=== PATIENT | male | born 1955 | race Caucasian/White ===

== ENCOUNTER 2020-05-23 14:33 | Outpatient (REF) | payer BC, SELFPAY ==
[2020-05-25 10:37] LABS: Free Prostate Spec Ag 1.4 ng/mL; Percent Free Prostate Spec Ag 22 % (calc) (>25); Prostate Specific Ag Total 6.4 ng/mL (< OR = 4.0)
== END 2020-05-23 14:34 | disposition home or self-care (01) ==
LOC: HO.LAB 14:33
PROVIDERS: PCP Internal Medicine; Visit Provider Internal Medicine
DX: R97.20 Elevated prostate specific antigen [PSA] (principal); Z12.5 Encounter for screening for malignant neoplasm of prostate
CPT/HCPCS: 84153; 84154

== ENCOUNTER 2020-08-24 10:35 | Outpatient (REF) | payer BC, SELFPAY ==
[2020-08-24 11:21] LABS: Estimated Average Glucose 117 mg/dL; Hemoglobin A1c % 5.7 %
[2020-08-24 12:07] LABS: Alanine Aminotransferase 32 U/L (0-40); Albumin Level 4.2 g/dL (3.5-5.0); Alkaline Phosphatase 77 U/L (39-117); Aspartate Amino Transferase 26 U/L (5-37); Bilirubin Direct 0.3 mg/dL (0.0-0.5); Bilirubin Total 0.9 mg/dL (0.0-1.0); Cholesterol 158 mg/dL; Glucose Fasting 117 mg/dL (60-99); HDL Cholesterol 39 mg/dL; LDL Cholesterol Calculated 61 mg/dl; Triglycerides 292 mg/dL
[2020-08-24 13:03] LABS: Reflex LDLD? No
== END 2020-08-24 10:36 | disposition home or self-care (01) ==
LOC: HO.LNP 10:35
PROVIDERS: Visit Provider Internal Medicine
DX: E78.00 Pure hypercholesterolemia, unspecified (principal); E08.10 Diabetes mellitus due to underlying condition with ketoacidosis without coma
CPT/HCPCS: 80061; 80076; 82947; 83036

== ENCOUNTER 2021-02-27 10:14 | Outpatient (REF) | payer OTHER, SELFPAY ==
[2021-02-27 10:20] LABS: MANUAL DIFF FLAG NO
[2021-02-27 10:57] LABS: Basophils Absolute Auto 0.1 X10*3/uL (0.0-0.2); Basophils Percent Auto 0.6 % (0-2); Eosinophils Absolute Auto 0.2 X10*3/uL (0.0-0.4); Eosinophils Percent Auto 2.6 % (0-4); Hematocrit 44.6 % (42-52); Hemoglobin 14.7 g/dl (14.0-18.0); Imm Gran Abs Auto 0.03 X10*3/uL (0.00-0.03); Imm Gran Pct Auto 0.4 % (0.0-0.4); Lymphocytes Absolute Auto 1.9 X10*3/uL (1.2-4.9); Lymphocytes Percent Auto 23.6 % (20-40); Mean Corpuscular Hemoglobin 31.3 pg (27.0-33.0); Mean Corpuscular Volume 94.9 fL (80-98); Mean Platelet Volume 10.6 fL (9.4-12.4); Monocytes Absolute Auto 0.8 X10*3/uL (0.1-1.2); Monocytes Percent Auto 9.7 % (2-11); Neutrophils Absolute Auto 5.1 X10*3/uL (2.0-8.3); Neutrophils Percent Auto 63.1 % (45-73); Platelet Count 266 X10*3/uL (160-400); Red Cell Distribution Width 12.7 % (11.0-16.0); White Blood Count 8.1 X10*3/uL (4.8-10.8)
[2021-02-27 11:17] LABS: Appearance Urine CLEAR; Color Urine YELLOW; Glucose Urine UA NEG (NEG); Leukocyte Esterase Urine NEG (NEG); Nitrite Urine NEG (NEG); Specific Gravity - Urine >= 1.030 (1.005-1.025); Urine Blood NEG (NEG); Urine Ketones NEG (NEG); Urine Protein NEG (NEG-TRACE)
[2021-02-27 11:36] LABS: Alanine Aminotransferase 24 U/L (0-40); Alkaline Phosphatase 72 U/L (39-117); Anion Gap 14 (12-20); Aspartate Amino Transferase 25 U/L (5-37); Bilirubin Total 0.4 mg/dL (0.0-1.0); Blood Urea Nitrogen 13 mg/dL (9-16); Calcium 9.8 mg/dL (8.4-10.2); Carbon Dioxide 28 mmol/L (22-29); Chloride 104 mmol/L (96-108); Cholesterol 167 mg/dL; Estimated Glomerular Filt Rate > 60; Glucose Fasting 112 mg/dL (60-99); HDL Cholesterol 51 mg/dL; LDL Cholesterol Calculated 84 mg/dl; Potassium 4.4 mmol/L (3.3-5.1); Sodium 142 mmol/L (135-145); Triglycerides 162 mg/dL
[2021-02-27 11:49] LABS: Estimated Average Glucose 117 mg/dL; Hemoglobin A1c % 5.7 %
[2021-02-27 11:56] LABS: Creatinine Urine 201.35 mg/dL; Microalbum/Creatinine Ratio Ur 6.9 ug/mg cr
[2021-02-27 12:24] LABS: Reflex LDLD? No
[2021-02-27 12:41] LABS: PSA,Total (Free>4and<10) 3.44 ng/mL (0.00-4.00)
== END 2021-02-27 10:15 | disposition home or self-care (01) ==
LOC: HO.LNP 10:14
PROVIDERS: Visit Provider Internal Medicine
DX: Z00.00 Encounter for general adult medical examination without abnormal findings (principal); Z12.5 Encounter for screening for malignant neoplasm of prostate; I10 Essential (primary) hypertension; E78.00 Pure hypercholesterolemia, unspecified; E11.9 Type 2 diabetes mellitus without complications
CPT/HCPCS: 80053; 80061; 81003; 82043; 83036; 84153; 85025

== ENCOUNTER 2021-08-30 11:53 | Outpatient (REF) | payer MEDICARE, SELFPAY ==
[2021-08-30 12:36] LABS: Alanine Aminotransferase 20 U/L (0-40); Albumin Level 4.2 g/dL (3.5-5.0); Alkaline Phosphatase 81 U/L (39-117); Aspartate Amino Transferase 21 U/L (5-37); Bilirubin Direct 0.2 mg/dL (0.0-0.5); Bilirubin Total 0.6 mg/dL (0.0-1.0); Cholesterol 141 mg/dL; Glucose Fasting 127 mg/dL (60-99); HDL Cholesterol 47 mg/dL; LDL Cholesterol Calculated 69 mg/dl; Total Protein 7.4 g/dL (6.5-8.0); Triglycerides 127 mg/dL
[2021-08-30 12:57] LABS: Estimated Average Glucose 120 mg/dL; Hemoglobin A1c % 5.8 %
[2021-08-30 14:44] LABS: Reflex LDLD? No
== END 2021-08-30 11:54 | disposition home or self-care (01) ==
LOC: HO.LNP 11:53
PROVIDERS: PCP Internal Medicine; Visit Provider Internal Medicine
DX: E78.00 Pure hypercholesterolemia, unspecified (principal); E08.40 Diabetes mellitus due to underlying condition with diabetic neuropathy, unspecified
CPT/HCPCS: 80061; 80076; 82947; 83036

== ENCOUNTER 2022-03-01 10:48 | Outpatient (REF) | payer MEDICARE, SELFPAY ==
[2022-03-01 10:52] LABS: MANUAL DIFF FLAG NO
[2022-03-01 11:38] LABS: Basophils Percent Auto 0.5 % (0-2); Eosinophils Absolute Auto 0.2 X10*3/uL (0.0-0.4); Eosinophils Percent Auto 2.3 % (0-4); Hematocrit 41.4 % (42.0-52.0); Hemoglobin 13.6 g/dl (14.0-18.0); Imm Gran Abs Auto 0.03 X10*3/uL (0.00-0.03); Imm Gran Pct Auto 0.3 % (0.0-0.4); Lymphocytes Percent Auto 22.8 % (20-40); Mean Corpuscular HGB Conc 32.9 g/dl (31.0-36.0); Mean Corpuscular Hemoglobin 30.4 pg (27.0-33.0); Mean Corpuscular Volume 92.6 fL (80.0-98.0); Mean Platelet Volume 10.6 fL (9.4-12.4); Monocytes Absolute Auto 0.9 X10*3/uL (0.1-1.2); Neutrophils Absolute Auto 5.5 x10*3/uL (2.0-8.3); Neutrophils Percent Auto 64.1 % (45-73); Platelet Count 261 X10*3/uL (160-400); Red Blood Count 4.47 X10*6/uL (4.60-5.80); White Blood Count 8.6 X10*3/uL (4.8-10.8)
[2022-03-01 11:41] LABS: Appearance Urine Clear; Color Urine Dark Yellow; Glucose Urine UA Negative (Negative); Leukocyte Esterase Urine Negative (Negative); Nitrite Urine Negative (Negative); PH 5.5 (5.0-9.0); Specific Gravity - Urine >= 1.030 (1.005-1.025); Urine Blood Negative (Negative); Urine Ketones Trace mg/dL (Negative); Urine Protein Negative (Neg-Trace)
[2022-03-01 11:47] LABS: Bacteria Urine None Seen (None Seen); Hyaline Casts Urine 0-2 /LPF (0-2); RBC Urine 0-2 /HPF (0-2); Squamous Epithelial Cell Urine 0-2 /HPF (0-2); WBC Urine 0-5 /HPF (0-5)
[2022-03-01 11:49] LABS: Alanine Aminotransferase 21 U/L (0-40); Albumin Level 4.2 g/dL (3.5-5.0); Alkaline Phosphatase 77 U/L (39-117); Anion Gap 15 (12-20); Aspartate Amino Transferase 27 U/L (5-37); Bilirubin Total 0.6 mg/dL (0.0-1.0); Blood Urea Nitrogen 20 mg/dL (9-16); Calcium 9.1 mg/dL (8.4-10.2); Carbon Dioxide 28 mmol/L (22-29); Chloride 102 mmol/L (96-108); Cholesterol 141 mg/dL; Estimated Glomerular Filt Rate > 60; Glucose Fasting 125 mg/dL (60-99); HDL Cholesterol 44 mg/dL; LDL Cholesterol Calculated 74 mg/dl; Sodium 141 mmol/L (135-145); Triglycerides 116 mg/dL
[2022-03-01 11:50] LABS: Estimated Average Glucose 120 mg/dL; Hemoglobin A1c % 5.8 %
[2022-03-01 12:14] LABS: PSA,Total (Free>4and<10) 3.57 ng/mL (0.00-4.00)
[2022-03-01 12:15] LABS: Creatinine Urine 226.48 mg/dL
== END 2022-03-01 10:49 | disposition home or self-care (01) ==
LOC: HO.LNP 10:48
PROVIDERS: Visit Provider Internal Medicine
DX: I10 Essential (primary) hypertension (principal); E08.40 Diabetes mellitus due to underlying condition with diabetic neuropathy, unspecified; E78.00 Pure hypercholesterolemia, unspecified; Z12.5 Encounter for screening for malignant neoplasm of prostate
CPT/HCPCS: 80053; 80061; 81001; 82043; 83036; 84153; 85025

== ENCOUNTER 2022-05-17 07:30 | Day surgery (SDC) | payer MEDICARE, SELFPAY ==
--- NOTE | 2022-05-16 14:02 | HO.ANESPROP2 ---
Documented by User: Iesha Jacobson NP 05/16/22 14:03 HPI - Anesthesia Eval Consult details Narrative: 67yo M for Colonoscopy [facility] Past Medical History Medical History Diabetes Elevated cholesterol HTN (hypertension) Sleep apnea Surgical History Surgical History Hx of colonoscopy Hx of hernia repair Hx of prostate biopsy Hx of rotator cuff surgery Social History Social History Patient Tobacco Use Status: Current someday Tobacco user Tobacco use type: Cigarette Cigarettes Per Day: 10 Years Smoked: 10 Smoked in Last 30 Days: Yes Use of substances other than those prescribed or required for medical reasons: Yes Substance Use Frequency: Occasionally Are you DNR?: No Advance Directives: No Advance Directives Information Provided: Yes Meds Allergies Allergy/AdvReac Type Severity Reaction Status Date / Time No Known Allergies Allergy Verified 05/17/22 07:40 Home Medications Medication Instructions Recorded Confirmed Last Taken Type atorvastatin 40 mg tablet 1 tab PO DAILY 05/16/22 05/17/22 Unknown History lisinopril 20 1 tab PO DAILY 05/16/22 05/17/22 05/17/22 07:00 History mg-hydrochlorothiazide 12.5 mg tablet metformin 500 mg tablet 1 tab PO BID 05/16/22 05/17/22 05/16/22 History tamsulosin 0.4 mg capsule 1 cap PO BEDTIME 05/16/22 05/17/22 Unknown History Exam Exam Date and Time: May 16, 2022 140 Pertinent Lab Results Pertinent Lab Results: Laboratory Tests 03/01/22 03/01/22 07:15 07:15 WBC 8.6 Hgb 13.6 L Hct 41.4 L Plt Count 261 Sodium 141 Potassium 4.0 Chloride 102 Carbon Dioxide 28 BUN 20 H Creatinine 0.98 Assessment and Plan Assessment Anesthesia Assessment: Chart Reviewed Documented by User: Jaqui Correa MD 05/17/22 08:51 [facility] Past Medical History Medical History Diabetes Elevated cholesterol HTN (hypertension) Sleep apnea Family History Family history of problems with anesthesia: No Surgical History Surgical History Hx of colonoscopy Hx of hernia repair Hx of prostate biopsy Hx of rotator cuff surgery History of Problems with Anesthesia: No Social History Social History Patient Tobacco Use Status: Current someday Tobacco user Tobacco use type: Cigarette Cigarettes Per Day: 10 Years Smoked: 10 Smoked in Last 30 Days: Yes Use of substances other than those prescribed or required for medical reasons: Yes Substance Use Frequency: Occasionally Are you DNR?: No Advance Directives: No Advance Directives Information Provided: Yes Meds Allergies Allergy/AdvReac Type Severity Reaction Status Date / Time No Known Allergies Allergy Verified 05/17/22 07:40 Home Medications Medication Instructions Recorded Confirmed Last Taken Type atorvastatin 40 mg tablet 1 tab PO DAILY 05/16/22 05/17/22 Unknown History lisinopril 20 1 tab PO DAILY 05/16/22 05/17/22 05/17/22 07:00 History mg-hydrochlorothiazide 12.5 mg tablet metformin 500 mg tablet 1 tab PO BID 05/16/22 05/17/22 05/16/22 History tamsulosin 0.4 mg capsule 1 cap PO BEDTIME 05/16/22 05/17/22 Unknown History Exam Airway Mallampati Class: II TM Dist: >3cm Neck ROM: Full Heart: rr Lungs: cta Assessment and Plan Final Anesthetic Review Family History of Problems with Anesthesia: No History of Problems with Anesthesia: No Final Preanesthetic Review: No Changes in Pt Med Stat Anesthetic Plan Anesthetic Plan: MAC: Disposition: Standard PACU
[2022-05-17 07:41] VITALS: BMI 34.1
[2022-05-17 07:47] LABS: Glucose, Whole Blood 111 mg/dL (60-115)
[2022-05-17 08:03] VITALS: BP 188/94; PULSE 67; RESP 16; TEMP 36.4; O2SAT 96
[2022-05-17] MEDS: Lactated Ringers 1,000 ML 100 ML IVCONT (08:04)
--- NOTE | 2022-05-17 09:30 | PM.OP ---
Brief Operative Note Date of Service: 05/17/22 Pre-op diagnosis: Screening Post-op diagnosis: other (Polyps) Procedure: Colonoscopy to the cecum with hot snare polypectomy x 4 Surgeon: Hudson Haas Anesthesia: MAC Was an Electrical Parts Re[employer]er used for this Procedure?: No Estimated blood loss (mL): 0 Pathology: other (A. Cecal polyp near appendiceal orifice B. Polyp at 50cm C. Polyp at 20cm D. Rectal polyp) Condition: stable Disposition: PACU
[2022-05-17 09:32] VITALS: BP 129/68; PULSE 71; RESP 14; TEMP 36.3; O2SAT 98
[2022-05-17 09:51] VITALS: BP 121/70; PULSE 76; RESP 18; TEMP 36.1; O2SAT 96
--- NOTE | 2022-05-17 09:54 | OP_ITS ---
SURGEON: Hudson Haas MD INDICATIONS: The patient presents for evaluation of colorectal cancer screening. Full consent has been obtained from him for this, including risks of bleeding and perforation. PREOPERATIVE DIAGNOSIS: Colorectal cancer screening. POSTOPERATIVE DIAGNOSIS: PROCEDURE PERFORMED: Colonoscopy to the cecum with hot snare polypectomy x 4. ESTIMATED BLOOD LOSS: COMPLICATIONS: ANESTHESIA: Monitored anesthesia care. ASSISTANTS: SPECIMENS: POSTOPERATIVE DIAGNOSES: Colorectal cancer screening, colon polyps, diverticulosis, and internal hemorrhoids. DESCRIPTION OF PROCEDURE: The patient was placed in the left lateral decubitus position. The digital rectal exam revealed no abnormalities. The Olympus video pediatric colonoscope was entered into the rectum and advanced easily to the cecum. Once in the cecum, I did identify a cecal pouch with appendiceal orifice. There was transillumination of light deep in the right lower quadrant. The entire cecum and ileocecal valve were well visualized. In the cecum, just adjacent to the appendiceal orifice was an approximately 10 mm grossly adenomatous polyp, which was removed by hot snare polypectomy and recovered by suction. The polypectomy site appeared clean, without any sign of residual polyp nor bleeding. The scope was then slowly withdrawn assessing all mucosal surfaces carefully. Preparation was excellent. At 50 cm, at 20 cm, and in the rectum were polyps between 8 and 12 mm in size, which were all removed by hot snare polypectomy and recovered by suction. All of the polypectomy sites appeared clean, without any sign of residual polyp nor bleeding. I did not visualize any other polyps, colitis, nor angiodysplasia. There was a mild amount of sigmoid diverticulosis. In the rectum, scope was retroflexed visualizing internal hemorrhoids, but no other pathology. The rectal mucosa appeared normal. The scope was straightened and withdrawn from the patient. He tolerated the procedure well and was returned to the recovery area in stable condition. IMPRESSION: 1. Colon polyps. 2. Diverticulosis. 3. Internal hemorrhoids. PLAN: The results of the pathology will be checked. Given these findings, including the relatively flat polyp near the appendiceal orifice, I would recommend a repeat colonoscopy in 1 year for further evaluation. He was advised not to use any aspirin or NSAIDs for 1 week. MD MONSERRAT Akhtar/TAMMIE / [id number] [facility] HEALTHBecky
== END 2022-05-17 10:20 | disposition home or self-care (01) ==
PROVIDERS: PCP Internal Medicine; Visit Provider Internal Medicine
PROC: 0DJD8ZZ Inspection of Lower Intestinal Tract, Via Natural or Artificial Opening Endoscopic (ICD-10-PCS; CPT 45378; principal; 2022-05-17 08:30)
DX: Z12.11 Encounter for screening for malignant neoplasm of colon (principal); D12.0 Benign neoplasm of cecum; D12.6 Benign neoplasm of colon, unspecified; D12.8 Benign neoplasm of rectum; K57.30 Diverticulosis of large intestine without perforation or abscess without bleeding; K64.8 Other hemorrhoids; I10 Essential (primary) hypertension; E11.9 Type 2 diabetes mellitus without complications; Z79.84 Long term (current) use of oral hypoglycemic drugs; Z79.899 Other long term (current) drug therapy
CPT/HCPCS: 45385; 82947; 88305

== ENCOUNTER 2022-09-17 12:00 | Outpatient (REF) | payer MEDICARE, SELFPAY ==
[2022-09-17 13:34] LABS: Estimated Average Glucose 117 mg/dL; Hemoglobin A1C 148.3802 umol/L; Hemoglobin A1c % 5.7 %
[2022-09-17 14:02] LABS: Alanine Aminotransferase 17 U/L (0-40); Alkaline Phosphatase 78 U/L (39-117); Aspartate Amino Transferase 19 U/L (5-37); Bilirubin Direct 0.2 mg/dL (0.0-0.5); Bilirubin Total 0.7 mg/dL (0.0-1.0); Cholesterol 144 mg/dL; Glucose Fasting 122 mg/dL (60-99); HDL Cholesterol 43 mg/dL; LDL Cholesterol Calculated 73 mg/dl; Total Protein 6.7 g/dL (6.5-8.0); Triglycerides 142 mg/dL
[2022-09-17 14:35] LABS: Reflex LDLD? No
== END 2022-09-17 12:01 | disposition home or self-care (01) ==
LOC: HO.LNP 12:00
PROVIDERS: Visit Provider Internal Medicine
DX: E78.00 Pure hypercholesterolemia, unspecified (principal); E08.40 Diabetes mellitus due to underlying condition with diabetic neuropathy, unspecified
CPT/HCPCS: 80061; 80076; 82947; 83036

== ENCOUNTER 2023-04-15 08:03 | Outpatient (REF) | payer MEDICARE, SELFPAY ==
[2023-04-15 10:42] LABS: MANUAL DIFF FLAG NO
[2023-04-15 10:52] LABS: Basophils Percent Auto 0.5 % (0-2); Eosinophils Absolute Auto 0.2 X10*3/uL (0.0-0.4); Eosinophils Percent Auto 2.2 % (0-4); Hematocrit 42.1 % (42.0-52.0); Imm Gran Abs Auto 0.02 X10*3/uL (0.00-0.03); Imm Gran Pct Auto 0.3 % (0.0-0.4); Lymphocytes Absolute Auto 1.9 X10*3/uL (1.2-4.9); Lymphocytes Percent Auto 24.9 % (20-40); Mean Corpuscular HGB Conc 33.3 g/dl (31.0-36.0); Mean Corpuscular Volume 90.3 fL (80.0-98.0); Mean Platelet Volume 10.8 fL (9.4-12.4); Monocytes Absolute Auto 0.7 X10*3/uL (0.1-1.2); Monocytes Percent Auto 8.5 % (2-11); Neutrophils Absolute Auto 4.9 x10*3/uL (2.0-8.3); Neutrophils Percent Auto 63.6 % (45-73); Platelet Count 282 X10*3/uL (160-400); Red Blood Count 4.66 X10*6/uL (4.60-5.80); Red Cell Distribution Width 12.2 % (11.0-16.0); White Blood Count 7.7 X10*3/uL (4.8-10.8)
[2023-04-15 10:53] LABS: Appearance Urine Clear; Color Urine Yellow; Glucose Urine UA Negative (Negative); Leukocyte Esterase Urine Negative (Negative); Nitrite Urine Negative (Negative); Urine Blood Negative (Negative); Urine Ketones Negative (Negative); Urine Protein Negative (Neg-Trace)
[2023-04-15 10:56] LABS: Bacteria Urine None Seen (None Seen); Hyaline Casts Urine 0-2 /LPF (0-2); RBC Urine 0-2 /HPF (0-2); Squamous Epithelial Cell Urine 0-2 /HPF (0-2); WBC Urine 0-5 /HPF (0-5)
[2023-04-15 11:01] LABS: Estimated Average Glucose 111 mg/dL; Hemoglobin A1c % 5.5 % (<6.0)
[2023-04-15 11:08] LABS: Alanine Aminotransferase 13 U/L (0-40); Alkaline Phosphatase 78 U/L (39-117); Anion Gap 13 (12-20); Aspartate Amino Transferase 18 U/L (5-37); Bilirubin Total 0.5 mg/dL (0.0-1.0); Blood Urea Nitrogen 13 mg/dL (9-16); Calcium 9.7 mg/dL (8.4-10.2); Carbon Dioxide 30 mmol/L (22-29); Chloride 102 mmol/L (96-108); Cholesterol 132 mg/dL (<200); Estimated Glomerular Filt Rate > 60; Glucose Fasting 124 mg/dL (60-99); HDL Cholesterol 36 mg/dL (>40); LDL Cholesterol Calculated 67 mg/dL (<100); Potassium 4.2 mmol/L (3.3-5.1); Sodium 141 mmol/L (135-145); Total Protein 7.2 g/dL (6.5-8.0); Triglycerides 147 mg/dL (<150)
[2023-04-15 11:19] LABS: PSA,Total (Free>4and<10) 2.76 ng/mL (0.00-4.00)
[2023-04-15 12:09] LABS: Creatinine Urine 63.76 mg/dL; Microalbumin Urine < 5.0 mg/L
== END 2023-04-15 08:04 | disposition home or self-care (01) ==
LOC: HO.10HDL 08:03
PROVIDERS: Visit Provider Internal Medicine
DX: I10 Essential (primary) hypertension (principal); E08.40 Diabetes mellitus due to underlying condition with diabetic neuropathy, unspecified; E78.00 Pure hypercholesterolemia, unspecified; Z12.5 Encounter for screening for malignant neoplasm of prostate
CPT/HCPCS: 36415; 80053; 80061; 81001; 82043; 82570; 83036; 84153; 85025

== ENCOUNTER 2023-12-01 11:53 | Outpatient (REF) | payer MEDICARE, SELFPAY ==
[2023-12-01 12:22] LABS: Estimated Average Glucose 120 mg/dL; Hemoglobin A1c % 5.8 % (<6.0)
[2023-12-01 12:25] LABS: Alanine Aminotransferase 17 U/L (0-40); Albumin Level 4.1 g/dL (3.5-5.0); Alkaline Phosphatase 89 U/L (39-117); Aspartate Amino Transferase 19 U/L (5-37); Bilirubin Direct 0.2 mg/dL (0.0-0.5); Bilirubin Total 0.5 mg/dL (0.0-1.0); Cholesterol 124 mg/dL (<200); Glucose Fasting 115 mg/dL (60-99); HDL Cholesterol 40 mg/dL (>40); LDL Cholesterol Calculated 41 mg/dL (<100); Total Protein 7.5 g/dL (6.5-8.0); Triglycerides 215 mg/dL (<150)
== END 2023-12-01 11:54 | disposition home or self-care (01) ==
LOC: HO.LNP 11:53
PROVIDERS: Visit Provider Internal Medicine
DX: E78.00 Pure hypercholesterolemia, unspecified (principal); E08.40 Diabetes mellitus due to underlying condition with diabetic neuropathy, unspecified
CPT/HCPCS: 80061; 80076; 82947; 83036

== ENCOUNTER 2024-06-04 11:09 | Outpatient (REF) | payer MEDICARE, SELFPAY ==
--- OUTSIDE RECORDS SUMMARY | 2024-06-04 11:15 | XMS_ITS | Patient Health Record ---
Author Organization Deshaun Rosenberg MD Address [address] [place], [place] [id number] Care Team Providers Care Exceptional Children Teacher Assistant Name Role Phone Deshaun Rosenberg Primary Care Provider ALLERGIES No Known Allergies RESULTS Component Value Reference Range Notes Hemoglobin A1c Reviewed date:09/05/2023 10:58:55 AM Interpretation: Performing Lab: Notes/Report: Value Hemoglobin A1c 6.5 Occult Blood, Stool, Guaiac Reviewed date:06/05/2023 03:35:35 PM Interpretation:Negative Performing Lab: Notes/Report: Negative Occult Blood, Stool, Guaiac Glucose, finger stick Reviewed date:09/05/2023 10:52:09 AM Interpretation: Performing Lab: Notes/Report: Value 137 Lipid Panel Reviewed date:12/01/2023 05:15:23 PM Interpretation: Performing Lab:[facility], [address] [place] [phone] Notes/Report: Triglycerides 215 <150 mg/dL Desirable Triglyceride: less than 150 mg/dL Borderline High Triglyceride 150-199 mg/dL High Triglyceride: 200-499 mg/dL Very High Triglyceride: greater than or equal to 5OO mg/dL Cholesterol 124 <200 mg/dL Desirable Cholesterol: less than 200 mg/dL Borderline High Cholesterol: 200-239 mg/dL High Cholesterol: greater than 239 mg/dL LDL Cholesterol Calculated 41 <100 mg/dL Desirable LDL: less than 100 mg/dL Near Optimal/Above Optimal LDL: 110-129 mg/dL Borderline High LDL: 130-159 mg/dL High LDL: 160-189 mg/dL Very High LDL: greater than or equal to 190 mg/dL HDL Cholesterol 40 >40 mg/dL Desirable HDL: greater than 40 mg/dL Note: This HDL assay may give artificially low results in patients with liver disease. Lory Kulkarni Reviewed date:12/01/2023 05:15:49 PM Interpretation: Performing Lab:[facility], [address] [place] [phone] Notes/Report: Lory Kulkarni See Note Specimen held untested for 24 hours; Call to request Chemistry testing. Liver Panel Reviewed date:12/01/2023 05:14:30 PM Interpretation: Performing Lab:[facility], [address] [place] [phone] Notes/Report: Bilirubin Total 0.5 0.0-1.0 mg/dL Bilirubin Direct 0.2 0.0-0.5 mg/dL Aspartate Amino Transferase 19 5-37 U/L Alanine Aminotransferase 17 0-40 U/L Total Protein 7.5 6.5-8.0 g/dL Albumin Level 4.1 3.5-5.0 g/dL Alkaline Phosphatase 89 39-117 U/L Glucose Fasting Reviewed date:12/01/2023 05:13:19 PM Interpretation: Performing Lab:[facility], [address] [place] [phone] Notes/Report: Glucose Fasting 115 60-99 mg/dL A fasting glucose from 100-125 mg/dl is considered impaired (pre-diabetes). Hemoglobin A1c Reviewed date:12/01/2023 05:13:10 PM Interpretation: Performing Lab:[facility], [address] [place] [phone] Notes/Report: Hemoglobin A1c % 5.8 <6.0 % Hemoglobin A1C Reference Range Adults: 4.8 - 6.0 % Non diabetic: < 6.0 % Goal: < 7.0 % Additional Action Suggested: > 8.0 % Note: Hemoglobin A1c results are invalid for patients with abnormal amounts of HbF. Blood transfusions may impact the HbA1c concentration in the patient sample. Estimated Average Glucose 120 eAG = Estimated average glucose which is %A1C expressed as average glucose, using the formula of the A6Y-Vpogely Average Glucose study (ADAG), Diabetes Care, Vol.31,#8, Jan. 2007 REASON FOR REFERRAL Reason arthritis in both kn ees Diagnosis 1 Arthritis of knee (M 17.10) Referral Organization Deshaun Rosenberg MD Referring Provider First Name Deshaun Referring Provider Last Name Chet Referring Provider Speciality Internal M edicine Referred Provider JUAN DIEGO ANDREWS Referred Provider Specialty Orthopedic S urgery General Notes Hui Hawthorne 08:56:43 AM EDT > info faxed , Hui Hawthorne 09/12/2023 11:53:12 AM EDT > office referral info paper mailed to patient, Hui Hawthorne 10/14/2023 08:59:07 AM EDT > patient aware of appt Payton Patti A 03/04/2024 08:47:07 AM EDT > NOTE RECD Referral Priority Routine Referral Appointment Date 11/05/2023 MEDICATIONS Medication SIG (Take, Route, Frequency, Duration) Notes Start Date End Date Status Ibuprofen 800 MG 1 tablet Orally Thre e times a day for 30 day(s) 09/12/2014 Not-Taking Ambien 5 MG 1 tablet at bedtime as needed Orally Once a day for 30 days 12/05/2023 Active LORazepam 0.5 MG 1 tablet as needed Orally Once a day for 5 days 04/14/2018 Not-Taking Ciclopirox 0.77% as directed applied topically twice a day for 30 days 04/12/2022 Active Celecoxib 200 MG TAKE 1 CAPSULE BY MOUTH ONCE DAILY WITH FOOD FOR 30 DAYS for 30 Active Gabapentin 600 MG 1 capsule Orally Onc e a day for 90 days 06/05/2023 Active Atorvastatin Calcium 40 MG Take 1 tablet by mouth once daily for 90 days for 90 Active Tamsulosin HCl 0.4 MG 1 capsule Orally O nce a day for 30 day(s) Active metFORMIN HCl 500 MG TAKE 1 TABLET BY [facility] TWICE DAILY WITH MEALS Active Lotrisone 1-0.05 % 1 application to affected area Externally Twice a day for 90 days 12/27/2012 Active Lisinopril-hydroCHLOROthia zide 20-12.5 MG Take 1 tablet by mouth once daily Active Ibuprofen 800 MG 1 tablet with food o r milk as needed Orally Three times a day for 90 days 10/24/2017 Not-Taking Viagra 50 MG 1 tablet as needed Orally Once a day for 30 days 12/22/2012 Not-Taking dexAMETHasone 4 MG 1 tablet Orally Thre e times a day for 7 days 12/24/2022 Not-Takin g Cyclobenzaprine HCl 5 MG 1 tab Orally 3 times a day for 14 days 12/31/2022 Not-Taking IMMUNIZATIONS Vaccine Route Administration Date Status Comme nts Flu Vaccine IM Intramuscular 02/04/2011 Administered Flu Vaccine IM Intramuscular 06/07/2014 Administered PPSV23 (Pnemovax) IM Intramuscular 11/17/2017 Administered Fluarix Quadrivalent IM Intramuscular 02/19/2018 Administe red Fluarix Quadrivalent IM Intramuscular 02/16/2019 Administe red Prevnar 13 IM Intramuscular 02/25/2019 Administered Fluarix Quadrivalent IM Intramuscular 03/09/2020 Administe red Fluarix Quadrivalent Unknown 02/23/2021 Administered CV S TDaP Unknown 02/23/2021 Administered [facility] SARS-COV-2 Pfizer Unknown 08/14/2020 Administered SARS-COV-2 Pfizer Unknown 09/04/2020 Administered Fluarix Quadrivalent IM Intramuscular 03/01/2022 Administe red SARS-COV-2 Pfizer Unknown 04/19/2021 Administered SARS-COV-2 Pfizer Unknown 03/01/2022 Administered Flu Vaccine Unknown 07/11/2015 Refused SOCIAL HISTORY Tobacco Use: Social History Observation Description Date Details (start date - stop date) Former Smoker NA - NA Sex Assigned At : Social History Observation Description Sex Assigned At Unknown Tobacco Use/Smoking Question Answer Notes Patient is a former smoker How long has it been since y ou last smoked? 6-12 months Additional Findings: Tobacco Non-User Fo rmer smoker, currently using no form of tobacco Alcohol Screen Question Answer Notes Did you have a drink contain ing alcohol in the past year? Yes How often did you have a dri nk containing alcohol in the past year? 4 or more times a week (4 points) How many drinks did you have on a typical day when you were drinking in the past year? 1 or 2 drinks (0 point) How often did you have 6 or more drinks on one occasion in the past year? Never (0 point) Points 4 Interpretation Positive PROBLEMS Problem Type ICD Code Onset Dates Problem Status W/U Status Risk SNOMED Code Notes Problem Primary insomnia (F51.01) Active confirmed 2669171 Problem Erectile dysfunction due to arterial insufficiency (N52.01) Active confirmed 4659807521232 07 Problem Smoker (F17.200) Active confirmed 38683 002 Problem Essential hypertensi on (I10) Active confirmed 38529267 Problem Type 2 diabetes mellitus without complication (E11.9) Active confirmed Type 2 diabetes mellitus without complication (614540763) Problem Olecranon bursitis o f left elbow (M70.22) Active confirmed Inflamma tion of bursa of olecranon (434132997) Problem Diabetes mellitus du e to underlying condition with diabetic neuropathy (E08.40) Active confirmed 1527832 Problem Type 2 diabetes, controlled, with neuropathy (E11.40) Active confirmed 92838343 Problem Stress (F43.9) Active confirmed 4811351 0 Problem Dysthymia (F34.1) Active confirmed 7866 7006 Problem Right sided sciatica (M54.31) Active confirmed Sciatica (45567694) Problem Pure hypercholesterolemia (E78.00) Active confirmed 434866927 Problem Arthritis of knee (M17.10) Active confirmed 408735275 Problem Unspecified sleep apnea (G47.30) Active confirmed 70345602 Problem Hand arthritis (M19.049) Active confirmed 106234068 Problem Disc disorder (M51.9) Active confirmed Intervertebral disc disorder (13611529) VITAL SIGNS Blood pressure diastolic 60 mm Hg 12/05/2023 patricia ght is up 5 pounds since 09-05-23 Height 64 in 12/05/2023 weight is up 5 pounds since 09-05-23 Blood pressure systolic 132 mm Hg 12/05/2023 weig ht is up 5 pounds since 09-05-23 Weight 205 lbs 12/05/2023 weight is up 5 pounds since 09-05-23 BMI 35.18 kg/m2 12/05/2023 weight is up 5 pounds since 09-05-23 Encounters Encounter Location Date Provider Diagnosis Deshaun Rosenberg MD [address] [place] [id number] 06/05/2023 Deshaun Rosenberg Pain in right knee M 25.561 ; Diabetes mellitus due to underlying condition with diabetic neuropathy E08.40 ; Essential hypertension I10 ; Pure hypercholesterolemia E78.00 ; Colon cancer screening Z12.11 and Depression screening Z13.31 Deshaun Rosenberg MD [address] [place] [id number] 12/01/2023 Deshaun Rosenberg Diabetes mellitus du e to underlying condition with diabetic neuropathy E08.40 and Pure hypercholesterolemia E78.00 Deshaun Rosenberg MD [address] [place] [id number] 06/04/2024 Deshaun Rosenberg Diabetes mellitus du e to underlying condition with diabetic neuropathy E08.40 ; Essential hypertension I10 and Pure hypercholesterolemia E78.00 Deshaun Rosenberg MD [address] [place] [id number] 09/05/2023 Deshaun Rosenberg Diabetes mellitus du e to underlying condition with diabetic neuropathy E08.40 ; Arthritis of knee M17.10 and Primary insomnia F51.01 Deshaun Rosenberg MD [address] [place] [id number] 12/05/2023 Deshaun Rosenberg Diabetes mellitus du e to underlying condition with diabetic neuropathy E08.40 ; Primary insomnia F51.01 ; Pure hypercholesterolemia E78.00 and Essential hypertension I10 ASSESSMENTS Encounter Date Diagnosis Assessment Notes Treatment Notes Treatment Clinical Notes 06/05/2023 Pain in right knee (ICD-10 - M25.561) referral to [facility]/ PATIENT WISHES TO GO TO THE WALK IN CLINIC AT [facility] , ALL INFO GIVEN 06/05/2023 Diabetes mellitus du e to underlying condition with diabetic neuropathy (ICD-10 - E08.40) doing well, will continue current regiment 12/01/2023 Diabetes mellitus du e to underlying condition with diabetic neuropathy (ICD-10 - E08.40) 12/01/2023 Pure hypercholestero lemia (ICD-10 - E78.00) 06/04/2024 Essential hypertensi on (ICD-10 - I10) 06/04/2024 Diabetes mellitus du e to underlying condition with diabetic neuropathy (ICD-10 - E08.40) 09/05/2023 Diabetes mellitus du e to underlying condition with diabetic neuropathy (ICD-10 - E08.40) stable, will continue current rgiment 09/05/2023 Arthritis of knee (I CD-10 - M17.10) referral to [facility], patient verbalized understanding of medication and directins fr use 12/05/2023 Primary insomnia (IC D-10 - F51.01) patient verbalized understanding of medication and directions for use 12/05/2023 Diabetes mellitus du e to underlying condition with diabetic neuropathy (ICD-10 - E08.40) a1c normal, will continue current regiment 06/05/2023 Essential hypertensi on (ICD-10 - I10) well controlled, will continue current regiment 06/04/2024 Pure hypercholestero lemia (ICD-10 - E78.00) 09/05/2023 Primary insomnia (IC D-10 - F51.01) patient verbalized understanding of medicatin and directions for use. 12/05/2023 Pure hypercholestero lemia (ICD-10 - E78.00) stable, will continue current regiment 06/05/2023 Pure hypercholestero lemia (ICD-10 - E78.00) stable, will continue current regiment 12/05/2023 Essential hypertensi on (ICD-10 - I10) stable, will contiue current regiment 06/05/2023 Colon cancer screeni ng (ICD-10 - Z12.11) guaiac negative 06/05/2023 Depression screening (ICD-10 - Z13.31) negative screen PLAN OF TREATMENT Pending Test Test Name Order Date Electrocardiogram (EKG) 02/19/2018 Electrocardiogram (EKG) 02/25/2019 MRI LUMBAR SPINE NO CONTRAST 12/24/2022 Complete Blood Count Auto Diff 4 Comprehensive Erin. Panel Fast 4 Lipid Panel 06/04/2024 PSA,Total (Free>4and<10) 06/04/2024 MR thoracic spine wo con 01/21/2023 MR thoracic spine wo con 01/06/2023 UA ClnCatch+Micro w/rflx Cult 06/04/2024 Next Appt Details Provider Name:Deshaun delacruz, 06/10/2024 08:00:00 AM, [address] [place] [address], [address], [place], [place], [phone], Insurance Providers Payer Name Payer Address Payer Phone Subscriber Number Group Number Insured Name Patient Relationship to Insured Coverage Start Date Coverage End Date MEDICARE [employer] [address] [place] [address] [id number] Terri Chapin Self - patient is the insured [employer]BS OF [employer] [id number] [place] [phone] [id number] Terri Chapin Self - patient is the insured MEDICAL (GENERAL) HISTORY Medical History History ICD Code colonoscopy 04/05/2009 due 1 0 year w/Dr. Haas: 05/17/22 Colonoscopy 1 yr follow up refuses flu vac - 06/26/2012 Rotator cuff tear
--- OUTSIDE RECORDS SUMMARY | 2024-06-04 11:15 | XMS_ITS ---
Author Organization Deshaun Rosenberg MD Address [address] [place] [phone] Care Team Providers Care Reprographics Associate Name Role Phone Deshaun Rosenberg Primary Care Provider ALLERGIES No Known Allergies REASON FOR VISIT 3 month, c/o left knee pain MEDICATIONS Medication SIG (Take, Route, Frequency, Duration) Notes Start Date End Date Status Cyclobenzaprine HCl 5 MG 1 tab Orally 3 times a day for 14 days 12/31/2022 Not-Taking Ibuprofen 800 MG 1 tablet with food o r milk as needed Orally Three times a day for 90 days 10/24/2017 Not-Taking Viagra 50 MG 1 tablet as needed Orally Once a day for 30 days 12/22/2012 Not-Taking LORazepam 0.5 MG 1 tablet as needed Orally Once a day for 5 days 04/14/2018 Not-Taking Ibuprofen 800 MG 1 tablet Orally Thre e times a day for 30 day(s) 09/12/2014 Not-Taking metFORMIN HCl 500 MG TAKE 1 TABLET BY [facility] TWICE DAILY WITH MEALS Active Atorvastatin Calcium 40 MG Take 1 tablet by mouth once daily Active dexAMETHasone 4 MG 1 tablet Orally Thre e times a day for 7 days 12/24/2022 Not-Takin g Gabapentin 600 MG 1 capsule Orally Onc e a day for 90 days 06/05/2023 Active Lisinopril-hydroCHLOROthia zide 20-12.5 MG Take 1 tablet by mouth once daily Active Tamsulosin HCl 0.4 MG 1 capsule Orally O nce a day for 30 day(s) Active Ambien 5 MG 1 tablet at bedtime as needed Orally Once a day for 30 days 12/05/2023 Active Lotrisone 1-0.05 % 1 application to affected area Externally Twice a day for 90 days 12/27/2012 Active Ciclopirox 0.77% as directed applied topically twice a day for 30 days 04/12/2022 Active CeleBREX 200 MG 1 capsule with food Orally Once a day for 30 day(s) 09/05/2023 Active VITAL SIGNS BMI 35.18 kg/m2 12/05/2023 Blood pressure systolic 132 mm Hg 12/05/19 24 Blood pressure diastolic 60 mm Hg 024 Height 64 in 12/05/2023 Weight 205 lbs 12/05/2023 weight is up 5 pounds since 09-05-23 Encounters Encounter Location Date Provider Diagnosis Deshaun Rosenberg MD [address] [place] [address] [place] [id number] 12/05/2023 Deshaun Rosenberg Diabetes mellitus du e to underlying condition with diabetic neuropathy E08.40 ; Primary insomnia F51.01 ; Pure hypercholesterolemia E78.00 and Essential hypertension I10 ASSESSMENTS Encounter Date Diagnosis Assessment Notes Treatment Notes Treatment Clinical Notes 12/05/2023 Diabetes mellitus du e to underlying condition with diabetic neuropathy (ICD-10 - E08.40) a1c normal, will continue current regiment 12/05/2023 Primary insomnia (IC D-10 - F51.01) patient verbalized understanding of medication and directions for use 12/05/2023 Pure hypercholestero lemia (ICD-10 - E78.00) stable, will continue current regiment 12/05/2023 Essential hypertensi on (ICD-10 - I10) stable, will contiue current regiment PLAN OF TREATMENT Medication Medication Name Sig Start Date Stop Date Notes metFORMIN HCl 500 MG TAKE 1 TABLET BY MO UTH TWICE DAILY WITH MEALS Atorvastatin Calcium 40 MG Take 1 tablet by mouth once daily Lisinopril-hydroCHLOROthiazi de 20-12.5 MG Take 1 tablet by mouth once daily Ambien 5 MG 1 tablet at bedtime as needed Orally Once a day for 30 days 12/05/2023 Treatment Notes Assessment Notes Diabetes mellitus due to und erlying condition with diabetic neuropathy a1c normal, will continue current regiment Primary insomnia patient verbalized u nderstanding of medication and directions for use Pure hypercholesterolemia stable, will c ontinue current regiment Essential hypertension stable, will cont iue current regiment Next Appt Details Provider Name:Deshaun Dominguez ier, 06/10/2024 08:00:00 AM, [address], [address], [place], [place], [phone], Progress Notes * Examination Category Sub-Category Detail Notes General Examination GENERAL APPEARANCE: alert, w ell hydrated, in no distress , male HEAD: normocephalic HEART: no murmurs, rubs, ga llops, regular rate and rhythm LUNGS: no wheezes, rales, r honchi, good air movement, clear to auscultation bilaterally SKIN: good turgor
--- OUTSIDE RECORDS SUMMARY | 2024-06-04 11:15 | XMS_ITS ---
Author Organization Deshaun Rosenberg MD Address [address] [place] [phone] Care Team Providers Care Hot Box Operator Name Role Phone Deshaun Rosenberg Primary Care Provider [phone] RESULTS Component Value Reference Range Notes Liver Panel Reviewed date:12/01/2023 05:14:30 PM Interpretation: Performing Lab:[facility], [address] [place] [phone] Notes/Report: Bilirubin Total 0.5 0.0-1.0 mg/dL Bilirubin Direct 0.2 0.0-0.5 mg/dL Aspartate Amino Transferase 19 5-37 U/L Alanine Aminotransferase 17 0-40 U/L Total Protein 7.5 6.5-8.0 g/dL Albumin Level 4.1 3.5-5.0 g/dL Alkaline Phosphatase 89 39-117 U/L Glucose Fasting Reviewed date:12/01/2023 05:13:19 PM Interpretation: Performing Lab:[facility], [address] [place] [phone] Notes/Report: Glucose Fasting 115 60-99 mg/dL A fasting glucose from 100-125 mg/dl is considered impaired (pre-diabetes). Hemoglobin A1c Reviewed date:12/01/2023 05:13:10 PM Interpretation: Performing Lab:[facility], [address] [place] [phone] Notes/Report: Hemoglobin A1c % 5.8 <6.0 % [...] average glucose, using the formula of the Z3T-Kuqfcrg Average Glucose study (ADAG), Diabetes Care, Vol.31,#8, 2007 REASON FOR VISIT FASTING LIPIDS Encounters Encounter Location Date Provider Diagnosis Deshaun Rosenberg MD [address] [place] [address] [address] [place], [place] [phone] 12/01/2023 Deshaun Rosenberg Diabetes mellitus du e to underlying condition with diabetic neuropathy E08.40 and Pure hypercholesterolemia E78.00 ASSESSMENTS Encounter Date Diagnosis Assessment Notes Treatment Notes Treatment Clinical Notes 12/01/2023 Diabetes mellitus du e to underlying condition with diabetic neuropathy (ICD-10 - E08.40) 12/01/2023 Pure hypercholestero lemia (ICD-10 - E78.00) PLAN OF TREATMENT Next Appt Details Provider Name:Deshaun Dominguez iemanuela, 06/10/2024 08:00:00 AM, [address] [place] [address], Suite [facility], [place], [place], [phone], History and Physical Notes * HPI (History of Present Illness) Category Sub-Category Detail Notes Symptom(s) Telehealth Location of prov ider rendering services:: [address] [place] [address], [address] Location of patient:: at address listed in demographics for today's visit Patient identification confirmed using:: Name, Telehealth method:: Telephone only. Katelyn ent not visible to care provider. Consent:: Patient verbally c onsented to treatment, Patient verbally consented to billing insurance company, Patient informed of any privacy concerns related to method of visit Total time spend talking with patient (m inutes): 0
--- OUTSIDE RECORDS SUMMARY | 2024-06-04 11:15 | XMS_ITS ---
Author Organization Deshaun Rosenberg MD Address [address] [place] [phone] Care Team Providers Care Classification Analyst Name Role Phone Deshaun Rosenberg Primary Care Provider [phone] REASON FOR VISIT FASTING LABS MEDICATIONS Medication SIG (Take, Route, Frequency, Duration) Notes Start Date End Date Status Ibuprofen 800 MG 1 tablet Orally Thre e times a day for 30 day(s) 09/12/2014 Not-Taking Ambien 5 MG 1 tablet at bedtime as needed Orally Once a day for 30 days 12/05/2023 Active Celecoxib 200 MG TAKE 1 CAPSULE BY MOUTH ONCE DAILY WITH FOOD FOR 30 DAYS for 30 Active metFORMIN HCl 500 MG TAKE 1 TABLET BY MO UT TWICE DAILY WITH MEALS Active Lisinopril-hydroCHLOROthia zide 20-12.5 MG Take 1 tablet by mouth once daily Active LORazepam 0.5 MG 1 tablet as needed Orally Once a day for 5 days 04/14/2018 Not-Taking Ibuprofen 800 MG 1 tablet with food o r milk as needed Orally Three times a day for 90 days 10/24/2017 Not-Taking Viagra 50 MG 1 tablet as needed Orally Once a day for 30 days 12/22/2012 Not-Taking dexAMETHasone 4 MG 1 tablet Orally Thre e times a day for 7 days 12/24/2022 Not-[address] Cyclobenzaprine HCl 5 MG 1 tab Orally 3 times a day for 14 days 12/31/2022 Not-Taking Ciclopirox 0.77% as directed applied topically twice a day for 30 days 04/12/2022 Active Gabapentin 600 MG 1 capsule Orally Onc e a day for 90 days 06/05/2023 Active Atorvastatin Calcium 40 MG Take 1 tablet by mouth once daily for 90 days for 90 Active Tamsulosin HCl 0.4 MG 1 capsule Orally O nce a day for 30 day(s) Active Lotrisone 1-0.05 % 1 application to affected area Externally Twice a day for 90 days 12/27/2012 Active Encounters Encounter Location Date Provider Diagnosis Deshaun Rosenberg MD [address] [place] [address] [address] [place], [place] [phone] 06/04/2024 Deshaun Rosenberg Diabetes mellitus du e to underlying condition with diabetic neuropathy E08.40 ; Essential hypertension I10 and Pure hypercholesterolemia E78.00 ASSESSMENTS Encounter Date Diagnosis Assessment Notes Treatment Notes Treatment Clinical Notes 06/04/2024 Diabetes mellitus du e to underlying condition with diabetic neuropathy (ICD-10 - E08.40) 06/04/2024 Essential hypertensi on (ICD-10 - I10) 06/04/2024 Pure hypercholestero lemia (ICD-10 - E78.00) PLAN OF TREATMENT Pending Test Test Name Order Date Complete Blood Count Auto Diff 4 Comprehensive [place]. Panel Fast 4 Lipid Panel 06/04/2024 PSA,Total (Free>4and<10) 06/04/2024 UA ClnCatch+Micro w/rflx Cult 06/04/2024 Next Appt Details Provider Name:Deshaun delacruz, 06/10/2024 08:00:00 AM, [address] [place] [address], [address], [place], [place], [phone],
[2024-06-04 11:21] LABS: MANUAL DIFF FLAG NO
[2024-06-04 11:29] LABS: Basophils Percent Auto 0.4 % (0-2); Eosinophils Absolute Auto 0.2 X10*3/uL (0.0-0.4); Eosinophils Percent Auto 2.3 % (0-4); Hematocrit 40.5 % (42.0-52.0); Hemoglobin 13.3 g/dl (14.0-18.0); Imm Gran Abs Auto 0.03 X10*3/uL (0.00-0.03); Imm Gran Pct Auto 0.4 % (0.0-0.4); Lymphocytes Percent Auto 23.8 % (20-40); Mean Corpuscular HGB Conc 32.8 g/dl (31.0-36.0); Mean Corpuscular Hemoglobin 31.3 pg (27.0-33.0); Mean Corpuscular Volume 95.3 fL (80.0-98.0); Mean Platelet Volume 10.9 fL (9.4-12.4); Monocytes Absolute Auto 0.9 X10*3/uL (0.1-1.2); Monocytes Percent Auto 10.4 % (2-11); Neutrophils Absolute Auto 5.1 x10*3/uL (2.0-8.3); Neutrophils Percent Auto 62.7 % (45-73); Platelet Count 302 X10*3/uL (160-400); Red Blood Count 4.25 X10*6/uL (4.60-5.80); Red Cell Distribution Width 12.5 % (11.0-16.0); White Blood Count 8.2 X10*3/uL (4.8-10.8)
[2024-06-04 11:31] LABS: Appearance Urine Clear; Color Urine Yellow; Glucose Urine UA Negative (Negative); Leukocyte Esterase Urine Negative (Negative); Nitrite Urine Negative (Negative); PH 5.5 (5.0-9.0); Specific Gravity - Urine >= 1.030 (1.005-1.025); Urine Blood Negative (Negative); Urine Ketones Trace mg/dL (Negative); Urine Protein Negative (Neg-Trace)
[2024-06-04 11:42] LABS: Bacteria Urine None Seen (None Seen); Hyaline Casts Urine 0-2 /LPF (0-2); RBC Urine 0-2 /HPF (0-2); Squamous Epithelial Cell Urine 0-2 /HPF (0-2); WBC Urine 0-5 /HPF (0-5)
[2024-06-04 12:00] LABS: PSA,Total (Free>4and<10) 3.29 ng/mL (0.00-4.00)
[2024-06-04 12:07] LABS: Alanine Aminotransferase 17 U/L (0-40); Albumin Level 3.7 g/dL (3.5-5.0); Alkaline Phosphatase 80 U/L (39-117); Anion Gap 11 (12-20); Aspartate Amino Transferase 24 U/L (5-37); Bilirubin Total 0.2 mg/dL (0.0-1.0); Blood Urea Nitrogen 20 mg/dL (9-16); Calcium 8.9 mg/dL (8.4-10.2); Carbon Dioxide 31 mmol/L (22-29); Chloride 102 mmol/L (96-108); Cholesterol 141 mg/dL (<200); Estimated Glomerular Filt Rate > 60; Glucose Fasting 111 mg/dL (60-99); HDL Cholesterol 44 mg/dL (>40); LDL Cholesterol Calculated 49 mg/dL (<100); Potassium 4.4 mmol/L (3.3-5.1); Sodium 140 mmol/L (135-145); Total Protein 6.8 g/dL (6.5-8.0); Triglycerides 243 mg/dL (<150)
== END 2024-06-04 11:10 | disposition home or self-care (01) ==
LOC: HO.LNP 11:09
PROVIDERS: Visit Provider Internal Medicine
DX: I10 Essential (primary) hypertension (principal); E08.40 Diabetes mellitus due to underlying condition with diabetic neuropathy, unspecified; E78.00 Pure hypercholesterolemia, unspecified; Z12.5 Encounter for screening for malignant neoplasm of prostate
CPT/HCPCS: 80053; 80061; 81001; 84153; 85025

== ENCOUNTER 2024-12-06 10:51 | Outpatient (REF) | payer MEDICARE, SELFPAY ==
--- OUTSIDE RECORDS SUMMARY | 2024-12-06 05:15 | XMS_ITS ---
Author Organization Deshaun Rosenberg MD Address [address] [place] [phone] Care Team Providers Care Turkey Farmer Name Role Phone Deshaun Rosenberg Primary Care Provider [phone] Allergies No Known Allergies REASON FOR [...] HCl 500 MG TAKE 1 TABLET BY [facility] TWICE DAILY WITH MEALS Orally twice a [...] Date Provider Diagnosis Deshaun Rosenberg MD [address] [place] [phone] 12/06/2024 Deshaun Rosenberg Tick bite W57.XXXA Assessments Encounter Date Diagnosis (ICD Code) Assessment Notes Treatment Notes Treatment Clinical Notes Section Notes 12/06/2024 Tick bite (ICD-10 - W57.XXXA) patient verbalized understanding of medication and directions for use Plan Of Treatment Medication Medication Name Sig Start Date Stop Date Notes Doxycycline Hyclate 100 MG 1 capsule Ora lly twice a day for 14 days 12/06/2024 Treatment Notes Assessment Notes Tick bite patient verbalized u nderstanding of medication and directions for use Pending Test Test Name Order Date Tick-borne Disease Molecular 12/06/2024 Next Appt Details Provider Name:Deshaun delacruz, 12/13/2024 09:00:00 AM, [address] [place] [address], [address], [phone], Provider Name:Deshaun delacruz, 05/30/2025 07:45:00 AM, [address] [place] [address], [address], [phone], Provider Name:Deshaun delacruz, 06/16/2025 10:00:00 AM, [address] [place] [address], [address], [phone], Progress Notes * Terri CHAPIN:[birth year] (69 yo M)Acc No.[id number]:12/06/2024 Progress Notes Patient: Terri APARICIO Provider: Miky Rosenberg MD :1955 A ge:69 Y S ex:Male Date:12/06/2024 Address:[address] [place], [place] [phone] Subjective: * Chief Complaints: * 1 . Tick bite and poison aleyda arms and legs. * HPI: S ymptom(s): patient is a [...] D enies N ausea. * Medical History: c olonoscopy 04/05/2009 due 10 year w/Dr. Haas: 05/17/22 Colonoscopy 1 yr follow up, Refuses flu vac - 06/26/2012, Rotator cuff tear. * Medications: T jeisong Ciclopirox 0.77% cream as directed applied topically twice a day , Taking Lisinopril-hydroCHLOROthiazide 20-12.5 MG Tablet Take 1 tablet by mouth once daily , Taking metFORMIN HCl 500 MG Tablet TAKE 1 TABLET BY MOUTH TWICE DAILY WITH MEALS Orally twice a day , Taking Atorvastatin Calcium 40 MG Tablet Take 1 tablet by mouth once daily for 90 days Once a day , Taking Tamsulosin HCl 0.4 MG Capsule 1 capsule Orally Once a day , Taking Gabapentin 600 MG Tablet 1 capsule Orally Once a day , Taking Ambien 5 MG Tablet 1 tablet at bedtime as needed Orally Once a day , Taking Lotrisone 1-0.05 % Cream 1 application to affected area Externally Twice a day , Not-Taking/PRN Celecoxib 200 MG Capsule TAKE 1 CAPSULE BY MOUTH ONCE DAILY WITH FOOD FOR 30 DAYS , Not-Taking/PRN dexAMETHasone 4 MG Tablet 1 tablet Orally Three times a day , Not-Taking/PRN Cyclobenzaprine HCl 5 MG Tablet 1 tab Orally 3 times a day , Not-Taking/PRN Ibuprofen 800 MG Tablet 1 tablet with food or milk as needed Orally Three times a day , Not-Taking/PRN Viagra 50 MG Tablet 1 tablet as needed Orally Once a day , Not-Taking/PRN LORazepam 0.5 MG Tablet 1 tablet as needed Orally Once a day , Not-Taking/PRN Ibuprofen 800 MG Tablet 1 tablet Orally Three times a day , Medication List reviewed and reconciled with the patient * Allergies: N .K.D.A. Objective: * Vitals: H t: 64, Wt: 196, BMI:33.64, Wt-k.91. BP not taken Poison Aleyda on arms. * Examination: G eneral Examination: GENERAL APPEARANCE: a lert, well hydrated, in no distress.? Assessment: * Assessment: 1. T ick bite - W57.XXXA (Primary) Plan: * Treatment: * * The named appointment provid er may or may not be the originator of this progress note, and it is not deemed complete until electronically signed by the appointment provider. Sign off status: Pending * Provider: Miky Rosenberg MD Date: 12/06/2024 Generated for Guillermo valle/Zulma/Tyleritting on: 12/06/2024 11:39 AM EDT History and Physical Notes * HPI (History [...]
[2024-12-06 11:13] LABS: Estimated Average Glucose 126 mg/dL; Hemoglobin A1C 165.9377 umol/L
[2024-12-06 11:20] LABS: Alanine Aminotransferase 22 U/L (0-40); Albumin Level 4.1 g/dL (3.5-5.0); Alkaline Phosphatase 86 U/L (39-117); Aspartate Amino Transferase 28 U/L (5-37); Bilirubin Direct 0.2 mg/dL (0.0-0.5); Bilirubin Total 0.4 mg/dL (0.0-1.0); Cholesterol 186 mg/dL (<200); Glucose Fasting 189 mg/dL (60-99); HDL Cholesterol 53 mg/dL (>40); LDL Cholesterol Calculated 103 mg/dL (<100); Total Protein 7.4 g/dL (6.5-8.0); Triglycerides 150 mg/dL (<150)
[2024-12-06 13:43] LABS: Reflex LDLD? No
== END 2024-12-06 10:52 | disposition home or self-care (01) ==
LOC: HO.LNP 10:51
PROVIDERS: Visit Provider Internal Medicine
DX: E78.00 Pure hypercholesterolemia, unspecified (principal); E11.40 Type 2 diabetes mellitus with diabetic neuropathy, unspecified
CPT/HCPCS: 80061; 80076; 82947; 83036

== ENCOUNTER 2024-12-16 09:00 | Outpatient (REF) | payer MEDICARE, SELFPAY ==
--- OUTSIDE RECORDS SUMMARY | 2024-12-13 05:00 | XMS_ITS ---
Author Organization Deshaun Rosenberg MD Address [address] [place] [phone] Care Team Providers Care Certified Orthotist Name Role Phone Deshaun Rosenberg Primary Care Provider Allergies No Known Allergies REASON FOR VISIT [...] Location Date Provider Diagnosis Deshaun Rosenberg MD [address] [place] [address] [address] [place], [place] [phone] 12/13/2024 Deshaun Rosenberg Diabetes mellitus du e [...] Hemoglobin A1c 12/13/2024 Glucose, finger stick 12/13/2024 Future Test Test Name Order Date Liver Panel 03/15/2025 Lipid Panel 03/15/2025 Next Appt Details Provider Name:Deshaun Dominguez ier, 03/15/2025 07:15:00 AM, [address], [address], [place], [place], [phone], Provider Name:Deshaun Dominguez ier, 05/30/2025 07:45:00 AM, [address], [address], [place], [phone], Provider Name:Deshaun Dominguez ier, 06/16/2025 10:00:00 AM, [address], [address], [place], [place], [phone], Progress Notes * ELLY Terri JDOB:[birth year] (69 yo M)Acc No.[id number]:12/13/2024 Progress Notes Patient: Katiuska ISAACSTerri Jeferson Provider: Miky Rosenberg MD :1955 A ge:69 Y S ex:Male Date:12/13/2024 Address:[address] [place] [phone] Subjective: * Chief Complaints: * 6 month [...] 2947 ASSAY, GLUCOSE, BLOOD QUANT, Modifiers: QW 26924 GLYCATED HEMOGLOBIN TEST, Modifiers: QW * * Sign off status: Completed true * Provider: Miky Rosenberg MD Date: 12/13/2024 Generated for Guillermo valle/Zulma/eTransmitting on: 0 12/16/2024 12:05 PM EDT History and Physical Notes * HPI [...]
--- OUTSIDE RECORDS SUMMARY | 2024-12-16 12:05 | XMS_ITS | Data Portability ---
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 Plan: Continue PT 2x/week for 4 weeks to decrease pain, improve ROM/strength, optimize mechanics for improved functional mobility with gait, stairs and increased independence with ADLs. [email or web address] Not available 03/23/2024 15:35:16 03/25/2024 03/25/2024 Assessment: Good toleration to increased resistance on shuttle. Min LOB with balance exercises. Pt able to complete all exercises without pain or discomfort. Plan: Continue PT 2x/week for 4 weeks to decrease pain, improve ROM/strength, optimize mechanics for improved functional mobility with gait, stairs and increased independence with ADLs. Not available 03/25/2024 15:54:19 03/29/2024 03/29/2024 Assessment: Pt mataining good knee ROM. Demonstrated good balance with tandem walking and slow high knees. Reviewed and updated HEP. Educated on importance of HEP. Plan: DC to HEP [email or web address] Not available 03/29/2024 17:59:07 04/15/2024 04/15/2024 Reason for Visit: 2 months status post left knee arthroscopy HPI: The patient is a 69-year-old male now 2 months status post left knee arthroscopy with partial medial meniscectomy performed on 02/16/2024. Overall, he is doing very well. He denies any pain. He does have a history of a right knee medial meniscus tear but currently his right knee is also doing quite well. He completed physical therapy and is very happy with his outcome. Physical Examination: Height and weight as noted in chart. Constitutional: Patient pleasant, well appearing and in NAD. Mental status: Patient is alert and oriented x 4. No short-term memory deficits. Psychiatric: Mood and affect are appropriate. Respiratory: Non-labored breathing. Musculoskeletal : On examination of the left knee, there is no effusion, erythema or ecchymosis. Surgical incision sites are well-healed. Overall knee range of motion from 0-130 . His knee is stable to varus and valgus stress. Impression and Plan: 69-year-old male now 2 months status post left knee arthroscopy with partial medial meniscectomy performed on 02/16/2024. Overall, he is doing very well. He denies any pain. He does have a history of a right knee medial meniscus tear but currently his right knee is also doing quite well. He completed physical therapy and is very happy with his outcome. At this point, neurosurgeons on him. Should his right knee pain recur, I recommend he call us back for another visit and we can discuss options. All questions and concerns were addressed. [email or web address] Not available 04/15/2024 13:59:20 Plan of Treatment Reminders Order Date Submit Date Provider Last Modified By Organization Details Last Modified Time Details Appointments None recorded. Lab None recorded. Referral None recorded. Procedures None recorded. Surgeries None recorded. Imaging None recorded. Medication Orders meloxicam 15 mg tablet 2024 025 [facility] [address] [place], [address], 08:40:30 Patient TargetsNo targets recorded. Patient InstructionsNo instructions recorded. Reason for Referral None Reported. 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 Procedures Surgical History Date Name Laterality Status Provider Name and Address Organization Details Recorded Time 09/17/19 Sports Knee 4&1 completed Merrick Garsia PA-C [address], [place], [address], [facility] 09/16/2024 08:40:09 03/29/20 [id number] Therapeutic Exercise (1:1) completed Hal Zieglerf, HOSPITALIST PHYSICIAN [address], [place], [address], [facility] 03/29/2024 15:31:03 03/29/20 75623: Neuromuscular Re-Education completed Hal Arango, HOSPITALIST PHYSICIAN [address], [place], [address], [facility] 03/29/2024 15:31:03 03/25/20 11212 Therapeutic Exercise (1:1) completed Hal Arango, HOSPITALIST PHYSICIAN [address], [place], [address], [facility] 03/25/2024 15:53:04 03/25/20 92740: Neuromuscular Re-Education completed Hal Zieglerf, HOSPITALIST PHYSICIAN [address], [place], [address], [facility] 03/25/2024 15:52:53 03/23/20 88058 Therapeutic Exercise (1:1) completed Diego Borjas DPT [address], [place], [address], [facility] 03/23/2024 08:09:24 03/10/20 99383 Therapeutic Exercise (1:1) completed Hal Zieglerf, HOSPITALIST PHYSICIAN [address], [place], [address], [facility] 03/10/2024 13:26:00 09/30/20 24 80246 Therapeutic Exercise (1:1) completed Diego Borjas, DPT [address], [place], [address], [facility] 03/08/2024 14:03:19 02/25/20 24 34383 Therapeutic Exercise (1:1) completed Hal Arango, HOSPITALIST PHYSICIAN [address], [place], [address], [facility] 02/25/2024 12:52:08 02/23/20 24 01751 Therapeutic Exercise (1:1) completed Hal Arango, HOSPITALIST PHYSICIAN [address], [place], [address], [facility] 02/23/2024 14:53:23 02/20/20 24 44936 Therapeutic Exercise (1:1) completed Jose Martins, HOSPITALIST PHYSICIAN [address], [place], [address], [facility] 02/20/2024 15:51:41 02/18/20 24 25793 Therapeutic Exercise (1:1) completed Diego Borjas, DPT [address], [place], [address], [facility] 02/18/2024 16:33:31 02/18/20 24 54530: Low complexity PT Eval completed Diego Borjas, DPT [address], [place], [address], [facility] 02/18/2024 15:15:39 02/18/20 24 G8417 BMI Above Upper Parameters, F/U Documented completed Diego Borjas DPT [address], [place], [address], [facility] 02/17/2024 11:13:13 02/18/20 24 G8427 Current Medication Documented completed Diego Borjas DPT [address], [place], [address], [facility] 02/18/2024 16:33:44 07/30/20 24 Sports Knee 4&1 completed Bhavana Conroy PA-C [address], [place], [address], [facility] 01/06/2024 16:43:11 12/25/19 24 Sports Knee 4&1 completed Abhijeet Rea MD [address], [place], [address], [facility] 12/25/2023 12:42:15 Imaging Results None recorded. Procedure Notes None recorded. Medical Equipment None Reported. Allergies No known drug allergies Medications Name Sig Start Date Stop Date Status Note LastModified by Organization Details LastModified Time celecoxib 200 mg capsule TAKE 1 CAPSULE BY MOUTH ONCE DAILY WITH FOOD active Not Available Not Available No t Available cyclobenzap rine 10 mg tablet 11/17 completed Not Available Not Available Not Available atorvastati n 40 mg tablet TAKE 1 TABLET BY MOUTH ONCE DAILY active Not Available Not Available No t Available metformin 500 mg tablet TAKE 1 TABLET BY MOUTH TWICE DAILY WITH MEALS active Not Available Not Available No t Available gabapentin 600 mg tablet TAKE 1 TABLET BY MOUTH ONCE DAILY active Not Available Not Available No t Available lisinopril 20 mg-hydrochl orothiazide 12.5 mg tablet TAKE 1 TABLET BY MOUTH ONCE DAILY active Not Available Not Available No t Available meloxicam 15 mg tablet TAKE 1 TABLET BY MOUTH ONCE DAILY active Not Available Not Available No t Available ondansetron HCl 4 mg tablet TAKE 1 TABLET BY MOUTH EVERY 6 TO 8 HOURS NEEDED FOR NAUSEA active Not Available Not Available No t Available aspirin 325 mg tablet,kinsey yed release TAKE 1 TABLET EVERY DAY BY MOUTH BEGINNING THE DAY AFTER SURGERY active Not Available Not Available No t Available tamsulosin 0.4 mg capsule TAKE 1 CAPSULE BY MOUTH EVERY DAY AT BEDTIME active Not Available Not Available No t Available neomycin-po lymyxin-dex ameth 3.5 mg/mL-10,00 0 unit/mL-0.1 % eye drops 11/17 completed Not Available Not Available Not Available dexamethaso ne 4 mg tablet TAKE 1 TABLET BY MOUTH THREE TIMES DAILY FOR 7 DAYS 11/17 completed Not Available Not Available Not Available clotrimazol e-betametha sone 1 %-0.05 % topical cream APPLY CREAM TO AFFECTED AREA EXTERNALL Y TWICE DAILY active Not Available Not Available No t Available gabapentin 300 mg capsule TAKE 1 CAPSULE BY MOUTH ONCE DAILY 11/17 completed Not Available Not Available Not Available zolpidem 5 mg tablet TAKE 1 TABLET BY MOUTH AT BEDTIME NEEDED FOR 30 DAYS active Not Available Not Available No t Available naproxen 500 mg tablet TAKE 1 TABLET BY MOUTH TWICE DAILY WITH FOOD FOR 5 DAYS active Not Available Not Available No t Available oxycodone 5 mg tablet TAKE 1 TABLET BY MOUTH EVERY 4 TO 6 HOURS NEEDED FOR MODERATE TO SEVERE PAIN active Not Available Not Available No t Available Vitals Date Recorded Body height Body mass index (BMI) Body weight Provider Name and Address Organization Details Last Updated DateTime 09/16/2024 162.56 cm 34.3 kg/m2 58659.47 g Katie Ochoa [facility] 09/16/2024 08:27:29 Date Recorded Body height Body mass index (BMI) Body weight Provider Name and Address Organization Details Last Updated DateTime 04/15/2024 162.56 cm 34.3 kg/m2 89822.47 g MOISES ANGLIN [facility] 04/15/2024 13:34:57 Social History None recorded. Functional Status Question Answer Note LastModified by Organization D etails LastModified Time Do you or have you ever used any other forms of tobacco or nicotine? No [email or web address] Information not available 02/05/2024 Mental Status None recorded. Family History Nothing Reported. Medical History Condition Response Diabetes Y Hypertension Y Past Encounters Encounter ID Performer Location Encounter Start Date Encounter Closed Date Diagnosis/Indication Diagnosis SNOMED-CT Code Diagnosis ICD10 Code Diagnosis Note [id number] MD Juanis Garza [address] [place] [address] 11/05/2023 14:05:21 11/17/2023 10:04:07 Pain of bilateral knee joints 0506596702 68727 M25.561 M25.562 Pain of le ft knee joint 2722978317 93967 M25.131 [id number] MD Juanis Garza [address] [place] [address] 11/24/2023 14:58:00 12/16/2023 08:49:43 Pain of left knee joint 2355398566 53366 M25.138 [id number] MD Juanis Hernandez [address] [place] [address] 12/25/2023 10:54:16 01/20/2024 10:42:25 Tear of medial meniscus of knee 974451256 S83.242A [id number] MASHA Lugo [address] [place] [address] 01/06/2024 13:10:14 01/26/2024 14:45:17 Pain of right knee joint 8188666437 00135 M25.561 Osteoarthr itis of right knee joint 5429675834 07500 M17.11 [id number] MASHA Lugo [address] [place] [address] 02/05/2024 14:09:58 03/01/2024 10:56:36 Osteoarthritis of right knee joint 2070707021 35617 M17.11 Tear of me dial meniscus of knee 041043136 S83.231A [id number] Diego Borjas, T [facility] on [address] [place] [address] 02/18/2024 14:55:50 02/18/2024 17:39:17 Tear of medial meniscus of knee 889166296 S83.241D [id number] Jose Martins [facility] on [address] [place] [address] 02/20/2024 15:02:14 02/20/2024 15:58:26 Tear of medial meniscus of knee 114666671 S83.241D [id number] [facility] [address] [place] [address] 02/23/2024 14:58:01 02/27/2024 13:28:19 Tear of medial meniscus of knee 602998432 S83.241D [id number] Hal Arango [facility] [address] [place] [address] 02/25/2024 13:28:38 02/25/2024 16:53:20 Tear of medial meniscus of knee 908166025 S83.241D [id number] MASHA Lugo [address] [place] [address] 03/03/2024 09:45:07 03/25/2024 15:40:50 Postoperative visit 987807422 Z48.89 Tear of me dial meniscus of knee 134737980 S83.231D [id number] Diego Borjas, DPT [facility] [address] [place] [address] 03/08/2024 12:58:52 03/08/2024 14:04:03 Tear of medial meniscus of knee 011147940 S83.241D [id number] Hal Topeteraf, [facility] [address] [facility] [address] 03/10/2024 13:19:43 03/10/2024 14:36:07 Tear of medial meniscus of knee 310848774 S83.241D [id number] Diego Borjas, DPT [facility] [address] [facility] [address] 03/23/2024 14:29:43 03/23/2024 15:43:29 Tear of medial meniscus of knee 493930647 S83.241D [id number] [facility] [address] [place] [address] 03/25/2024 14:31:55 03/25/2024 16:02:35 Tear of medial meniscus of knee 710979244 S83.241D [id number] Hong Nba, H[facility] PHYSIC[facility] [address] [facility] [address] 03/29/2024 15:29:14 03/29/2024 18:08:33 Tear of medial meniscus of knee 726973125 S83.241D [id number] MD Juanis Hernandez [address] [place] [address] 04/15/2024 13:27:54 05/13/2024 09:46:26 Surgical follow-up 091514304 Z48.89 [id number] MASHA Vergara [address] [place] [address] 09/16/2024 08:22:33 10/05/2024 11:15:17 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 5414631063 M17.31 Health Concerns Section Related Observation LastModified by Organization Detai ls LastModified Time None Recorded Concern Status LastModified by Organization Details LastModified Time None Recorded Advance Directives Directive None Recorded Payers Insurance Date Sequence Insurance Name Policy Number Policy Diaz Covered Member ID Diaz Member ID Guarantor Name 09/15/2024 1 [place] [employer] Terri Chapin [id number] Terri Chapin 10/05/2024 2 [place] [id number] Terri Chapin [id number] Terri Chapin Notes Date Note Type Note Provider Name and Address Organization Details Recorded Time 03/23/2024 text/html Patient reports returning to work late last week and the knee is sore today. Diego Borjas, DPT [address], [place], [address], [facility] 03/23/2024 15:36:37 03/25/2024 text/html Pt report's he i s doing good. still quickly fatigued when descending stairs but is improving. Hal Arango HOSPITALIST PHYSICIAN [address], [place], [address], [facility] 03/25/2024 15:59:31 03/29/2024 text/html Pt reports he is doing well. Has not been doing HEP but knee feels great. Hal Arango, HOSPITALIST PHYSICIAN [address], [place], [address], [facility] 03/29/2024 18:00:35 09/16/2024 text/html I am seeing the patient today under the supervision of Dr. Michelle was available but who did not see the patient. Chief Complaint The patient presents today for follow-up evaluation regarding the Right knee osteoarthritis. Is known to have knee arthritis treated conservatively to this point with relief of symptoms. Past Medical/Surgical History Reviewed today, otherwise unchanged per intake sheet. Physical Findings General Appearance: Mild antalgic gait Knee exam findings note: restrictions are range of motion with pain at extremes, tenderness to palpation involving medial and lateral compartment with mild crepitance, trace effusion, extensor mechanism intact, no instability. Assessment Osteoarthritis of Right knee Plan I discussed with the patient today regarding their knee condition to include all treatment options, conservation and operative, to include total knee replacement surgery which after further discussion, the patient does not wish to pursue any type of operative intervention. In regards to the patient's knees today, I have recommended continued conservative treatment with use of tylenol, possible use of antiinflammatories as well as possibility of intraarticular cortisone injections for which they wish to go forth with. Follow up with us in 3 months for further discussion of total knee replacement surgery versus continued conservative treatment. Merrick Garsia PA-C [facility] [address], [place], [address], [facility] 09/16/2024 08:40:38
--- OUTSIDE RECORDS SUMMARY | 2024-12-16 12:05 | XMS_ITS | Patient Health Record ---
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 Name Role Phone Deshaun Rosenberg MD Primary Care Provider Hudson Gomez Unavailable [phone] Allergies No Known Allergies Reason For Referral No Information Medications Medication SIG (Take, Route, Frequency, Duration) Notes Start Date End Date Status Tamsulosin HCl 0.4 MG TAKE 1 CAPSULE BY MOUTH EVERY NIGHT AT BEDTIME Oral for 90 Active Atorvastatin Calcium 20 MG 1 tablet Oral ly Once a day for 30 day(s) Active metFORMIN HCl 500 MG TAKE 1 TABLET BY [facility] TWICE DAILY WITH MEALS Orally twice a day Active Gabapentin Active Lisinopril-hydroCHLOROthiaz raymond 20-12.5 MG 1 tablet Orally Once a day 10/26/2024 Active Immunizations Vaccine Route Administration Date Status Comme nts Influenza Unknown 03/09/2019 Administered Influenza Unknown 03/06/2022 Administered Social History Tobacco Use: Social History Observation Description Date Details (start date - stop date) Former Smoker NA - NA Tobacco Use/Smoking Question Answer Notes Patient is a former smoker How long has it been since you last smoked? 1-3 months Alcohol Screen Question Answer Notes Did you have a drink contain ing alcohol in the past year? Yes How often did you have a dri nk containing alcohol in the past year? 2 to 3 times a week (3 points) How many drinks did you have on a typical day when you were drinking in the past year? 1 or 2 drinks (0 point) How often did you have 6 or more drinks on one occasion in the past year? Never (0 point) Points 3 Interpretation Negative Section Notes: Nonsmoker since 04/2019; no sig alcohol. Opioid pill addcition after shoulder surgery. Denies IVDA. He is presently tapering down on Suboxone as of the 06/16/19 OV. Nonsmoker since 04/2019; no sig alcohol. 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 Denies IVDA. He is presently tapering down on Suboxone as of the 06/16/19 OV--he finished the Suboxone in 2019 Nonsmoker since 04/2019; no sig alcohol. 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 Denies IVDA. He is presently tapering down on Suboxone as of the 06/16/19 OV--he finished the Suboxone in 2019 Problems Problem Type SNOMED Code ICD Code Onset Dates Problem Status W/U Status Risk Notes Problem [id number] Encounter for screening for malignant neoplasm of colon (Z12.11) Active confirmed Problem [id number] Preprocedural examination (Z01.818) Active confirmed Problem Diverticulosis of sigmoid colon (473656060) Diverticulosis of sigmoid colon (K57.30) Active confirmed Vital Signs Blood pressure diastolic 77 mm Hg 10/26/2024 Height 65 in 10/26/2024 Blood pressure systolic 111 mm Hg 10/26/2024 Weight 200 lbs 10/26/2024 BMI 33.28 kg/m2 10/26/2024 Procedures Procedure Date Ordered Date Performed Result Body Sit e COLONOSCOPY 10/26/2024 N/A Encounters Encounter Location Date Provider Diagnosis [facility] [address] [facility] [address] [place] [address] 10/26/2024 Hudson Haas Encounter for screen ing for malignant neoplasm of colon Z12.11 ; High risk medications (not anticoagulants) long-term use Z79.899 ; Serrated polyp of colon K63.5 ; History of adenomatous polyp of colon Z86.0101 and Preprocedural examination Z01.818 Assessments Encounter Date Diagnosis (ICD Code) Assessment Notes Treatment Notes Treatment Clinical Notes Section Notes 10/26/2024 Encounter for screening for malignant neoplasm of colon (ICD-10 - Z12.11) Overall, Rahel appears well. He is not having any new or worrisome GI complaints. Given the history of a flat serrated polyp removed 2 1/2 years ago, along with several tubular adenomas, I did recommend a follow-up colonoscopy for further screening purposes. We did review the rationale for that in regard to colon cancer prevention. Full consent has been taken for this, including risk of bleeding and perforation. The procedure will be done with monitored anesthesia care. He was given the below instructions in regard to adjustment of his medication for the procedure. Rahel was comfortable with this plan. Thank you again for allowing me to participate in Rahel's care. I shall continue to keep you advised of his progress. 10/26/2024 High risk medications (not anticoagulants) long-term use (ICD-10 - Z79.899) Overall, Rahel appears well. He is not having any new or worrisome GI complaints. Given the history of a flat serrated polyp removed 2 1/2 years ago, along with several tubular adenomas, I did recommend a follow-up colonoscopy for further screening purposes. We did review the rationale for that in regard to colon cancer prevention. Full consent has been taken for this, including risk of bleeding and perforation. The procedure will be done with monitored anesthesia care. He was given the below instructions in regard to adjustment of his medication for the procedure. Rahel was comfortable with this plan. Thank you again for allowing me to participate in Rahel's care. I shall continue to keep you advised of his progress. 10/26/2024 Serrated polyp of colon (ICD-10 - K63.5) Overall, Rahel appears well. He is not having any new or worrisome GI complaints. Given the history of a flat serrated polyp removed 2 1/2 years ago, along with several tubular adenomas, I did recommend a follow-up colonoscopy for further screening purposes. We did review the rationale for that in regard to colon cancer prevention. Full consent has been taken for this, including risk of bleeding and perforation. The procedure will be done with monitored anesthesia care. He was given the below instructions in regard to adjustment of his medication for the procedure. Rahel was comfortable with this plan. Thank you again for allowing me to participate in Rahel's care. I shall continue to keep you advised of his progress. 10/26/2024 History of adenomatous polyp of colon (ICD-10 - Z86.0101) Overall, Rahel appears well. He is not having any new or worrisome GI complaints. Given the history of a flat serrated polyp removed 2 1/2 years ago, along with several tubular adenomas, I did recommend a follow-up colonoscopy for further screening purposes. We did review the rationale for that in regard to colon cancer prevention. Full consent has been taken for this, including risk of bleeding and perforation. The procedure will be done with monitored anesthesia care. He was given the below instructions in regard to adjustment of his medication for the procedure. Rahel was comfortable with this plan. Thank you again for allowing me to participate in Rahel's care. I shall continue to keep you advised of his progress. 10/26/2024 Preprocedural examination (ICD-10 - Z01.818) Overall, Rahel appears well. He is not having any new or worrisome GI complaints. Given the history of a flat serrated polyp removed 2 1/2 years ago, along with several tubular adenomas, I did recommend a follow-up colonoscopy for further screening purposes. We did review the rationale for that in regard to colon cancer prevention. Full consent has been taken for this, including risk of bleeding and perforation. The procedure will be done with monitored anesthesia care. He was given the below instructions in regard to adjustment of his medication for the procedure. Rahel was comfortable with this plan. Thank you again for allowing me to participate in Rahel's care. I shall continue to keep you advised of his progress. Plan Of Treatment Pending Test Test Name Order Date COLONOSCOPY 10/26/2024 Future Test Test Name Order Date COLONOSCOPY 06/16/2019 COLONOSCOPY 03/13/2022 Next Appt Details Provider Name:Hudson Haas , 01/10/2025 01:40:00 PM, [address] [place] [address] , [place], [place], [id number], Insurance Providers Payer Name Payer Address Payer Phone Subscriber Number Group Number Insured Name Patient Relationship to Insured Coverage Start Date Coverage End Date MEDICARE OF [place] [address] [place] [address] [id number] RAHEL SANABRIA Self - patient is the insured 1 [employer] CLAIMS [address] [place] [address] [phone] [id number] RAHEL SANABRIA Self - patient is the insured Medical (General) History Medical History History ICD Code Denies [place],CVA,Lung disease,renal disease NIDDM Hypertension Hyperlipidemia Screening colonoscopy in 03/2009 with a hyperplastic polyp On Suboxone in relation to a n opioid addiction in relation to shoulder surgery in 2015--tapering down as of 06/2019--came off in 2019 Sleep apnea history in the past--present ly not using CPAP Negative prostate biopsy in early 2021 Screening Colonoscopy in 2021---1 flat serrated polyp removed from the cecum and 3 other tubular adenomas removed from the colon Surgical History Surgery Date(Month/Year) Left torn meniscus knee 2023 Left inguinal hernia repair Rotator cuff tear repair- left shoulder
[2024-12-17 22:49] LABS: A. Phagocytphilium DNA,RT-PCR NOT DETECTED (NOT DETECTED); Babesia Microti DNA, RT-PCR NOT DETECTED (NOT DETECTED); Borrelia Miyamotoi,DNA RT-PCR NOT DETECTED (NOT DETECTED); E.Chaffeensis DNA RT-PCR NOT DETECTED (NOT DETECTED); Lyme(Borrelia ssp)DNA RT-PCR NOT DETECTED (NOT DETECTED)
== END 2024-12-16 09:01 | disposition home or self-care (01) ==
LOC: HO.LNP 09:00
PROVIDERS: Visit Provider Internal Medicine
DX: T14.8XXA Other injury of unspecified body region, initial encounter (principal); W57.XXXA Bitten or stung by nonvenomous insect and other nonvenomous arthropods, initial encounter; Y93.9 Activity, unspecified; Y92.9 Unspecified place or not applicable; Y99.9 Unspecified external cause status
CPT/HCPCS: 87468; 87469; 87478; 87484; 87798

== ENCOUNTER → 2025-01-10 | Day surgery (SDC) | payer MEDICARE, SELFPAY ==
[2025-01-06 16:01] VITALS: BMI 33.3
--- NOTE | 2025-01-07 12:49 | HO.ANESPROP2 ---
Documented by User: Iesha Jacobson NP 01/07/25 12:49 HPI - Anesthesia Eval Consult details Narrative: 69yo M for Colonoscopy PMFSH Past Medical History Medical History (Updated 01/10/25 @ 13:18 by Shae Baker RN) Skin cancer of face Sleep apnea Elevated cholesterol HTN (hypertension) Diabetes Family History Family history of problems with anesthesia: No Surgical History Surgical History (Updated 01/10/25 @ 12:53 by Shae Baker RN) H/O knee surgery Hx of prostate biopsy Hx of hernia repair Hx of rotator cuff surgery Hx of colonoscopy History of Problems with Anesthesia: No Social History Social History Patient Tobacco Use Status: Current everyday Tobacco user Tobacco use type: Cigarette Cigarette Packs Per Day: 0.5 Cigarettes Per Day: 10.0 Years Smoked: 10 Meds Allergies Allergy/AdvReac Type Severity Reaction Status Date / Time No Known Allergies Allergy Verified 05/17/22 07:40 Home Medications ?Medication ?Instructions ?Recorded ?Confirmed ?Last Taken ?Type atorvastatin 40 mg tablet 1 tab PO DAILY 05/16/22 01/06/25 Unknown History lisinopril 20 1 tab PO DAILY 05/16/22 01/06/25 01/10/25 History mg-hydrochlorothiazide 12.5 mg tablet metformin 500 mg tablet 1 tab PO BID 05/16/22 01/06/25 05/16/22 History tamsulosin 0.4 mg capsule 1 cap PO BEDTIME 05/16/22 01/06/25 Unknown History Exam Height,Weight and Vital Signs: Height 5 ft 5 in Weight 90.718 kg Assessment and Plan Assessment Anesthesia Assessment: Chart Reviewed Final Anesthetic Review Family History of Problems with Anesthesia: No History of Problems with Anesthesia: No Documented by User: Amish Madera MD 01/10/25 14:34 PMF Past Medical History Medical History (Updated 01/10/25 @ 13:18 by Shae Baker RN) Skin cancer of face Sleep apnea Elevated cholesterol HTN (hypertension) Diabetes Cognitive capacity: normal Functional capacity: independent ambulation Surgical History Surgical History (Updated 01/10/25 @ 12:53 by Shae Baker RN) H/O knee surgery Hx of prostate biopsy Hx of hernia repair Hx of rotator cuff surgery Hx of colonoscopy Social History Social History Patient Tobacco Use Status: Current everyday Tobacco user Tobacco use type: Cigarette Cigarette Packs Per Day: 0.5 Cigarettes Per Day: 10.0 Years Smoked: 10 Meds Allergies Allergy/AdvReac Type Severity Reaction Status Date / Time No Known Allergies Allergy Verified 05/17/22 07:40 Home Medications ?Medication ?Instructions ?Recorded ?Confirmed ?Last Taken ?Type atorvastatin 40 mg tablet 1 tab PO DAILY 05/16/22 01/06/25 Unknown History lisinopril 20 1 tab PO DAILY 05/16/22 01/06/25 01/10/25 History mg-hydrochlorothiazide 12.5 mg tablet metformin 500 mg tablet 1 tab PO BID 05/16/22 01/06/25 05/16/22 History tamsulosin 0.4 mg capsule 1 cap PO BEDTIME 05/16/22 01/06/25 Unknown History Exam Exam Date and Time: 01/10/2025 Airway TM Dist: >3cm Neck ROM: Full Loose/Missing/Broken Teeth: No Heart: rrr Lungs: cta Other: normal Assessment and Plan Final Anesthetic Review NPO: Yes ASA Class: II Final Preanesthetic Review: No Changes in Pt Med Stat, Meds/Allgs Chart Reviewed, Consent Obtained/Reviewed and Anes Risks/Benef Reviewed Patient Risk: Low Procedure Risk: Low Anesthetic Plan Anesthetic Plan: MAC: and Agree w/ Assess. and Plan Disposition: Standard PACU
[2025-01-10 12:55] VITALS: BMI 32.7
[2025-01-10 12:59] VITALS: PULSE 77; RESP 16; TEMP 36.3; O2SAT 96
[2025-01-10] MEDS: Lactated Ringers 1,000 ML 100 ML IVCONT (13:21)
[2025-01-10 15:20] VITALS: BP 111/80; PULSE 75; RESP 16; TEMP 36.7; O2SAT 99
--- NOTE | 2025-01-10 15:23 | PM.OP ---
Brief Operative Note Date of Service: 01/10/25 Pre-op diagnosis: Screening Post-op diagnosis: other (Diverticulosis) Procedure: Colonoscopy to the cecum Surgeon: Hudson Haas MD Anesthesia: MAC Was an Spinner Operator used for this Procedure?: No Estimated blood loss (mL): 0 Pathology: none sent Condition: stable Disposition: PACU
[2025-01-10 15:30] VITALS: BP 137/81; PULSE 80; RESP 16; TEMP 36.6; O2SAT 96
[2025-01-10 16:03] LABS: Glucose, Whole Blood 122 mg/dL (60-115)
--- NOTE | 2025-01-11 01:48 | OP_ITS ---
DATE OF SERVICE: 01/10/2025 SURGEON: Hudson Haas MD INDICATIONS: The patient presents for followup of personal history of colon polyps. Full consent has been obtained from him for this, including risks of bleeding and perforation. PREOPERATIVE DIAGNOSIS: POSTOPERATIVE DIAGNOSIS: PROCEDURE PERFORMED: Colonoscopy to the cecum. ESTIMATED BLOOD LOSS: COMPLICATIONS: ANESTHESIA: Medication used, monitored anesthesia care. ASSISTANTS: SPECIMENS: PREOPERATIVE DIAGNOSES: Colorectal cancer screening and personal history of colon polyps. POSTOPERATIVE DIAGNOSES: Colorectal cancer screening and personal history of colon polyps, diverticulosis, and internal hemorrhoids. DESCRIPTION OF PROCEDURE: The patient was placed in left lateral decubitus position. The digital rectal exam revealed no abnormalities. The Olympus video pediatric colonoscope was entered into the rectum and advanced easily to the cecum. Once in the cecum, I did identify normal-appearing cecal pouch with appendiceal orifice and a normal-appearing ileocecal valve. The entire cecum including the area of the appendiceal orifice was well visualized and appeared normal. There was no sign of any residual polyp tissue. There was transillumination of light deep in the right lower quadrant. The ileocecal valve appeared normal. The scope was slowly withdrawn assessing all mucosal surfaces carefully. Preparation was excellent. I did not visualize any sign of polyps, colitis, nor angiodysplasia. There was a mild amount of sigmoid diverticulosis. In the rectum, scope was retroflexed visualizing internal hemorrhoids, but no other pathology. The rectal mucosa appeared normal. Scope was straightened out and withdrawn from the patient. He tolerated the procedure well and was returned to the recovery area in stable condition. IMPRESSION: 1. Diverticulosis. 2. Internal hemorrhoids. PLAN: Given his previous history, I would recommend a followup colonoscopy in 5 years for further screening. He will otherwise see me on a p.r.n. basis. MD MONSERRAT Akhtar/TAMMIE / [phone] BARBIE
== END | disposition home or self-care (01) ==
LOC: HO.SSS 01-11 09:20
PROVIDERS: PCP Internal Medicine; Visit Provider Internal Medicine
PROC: 0DJD8ZZ Inspection of Lower Intestinal Tract, Via Natural or Artificial Opening Endoscopic (ICD-10-PCS; CPT 45378; principal; 2025-01-10 13:40)
DX: Z12.11 Encounter for screening for malignant neoplasm of colon (principal); K57.30 Diverticulosis of large intestine without perforation or abscess without bleeding; K64.8 Other hemorrhoids; Z86.0101 Personal history of adenomatous and serrated colon polyps; E11.9 Type 2 diabetes mellitus without complications; I10 Essential (primary) hypertension; E78.5 Hyperlipidemia, unspecified; G47.30 Sleep apnea, unspecified; F11.20 Opioid dependence, uncomplicated; Z79.84 Long term (current) use of oral hypoglycemic drugs; Z79.899 Other long term (current) drug therapy; Z79.02 Long term (current) use of antithrombotics/antiplatelets
CPT/HCPCS: G0105; 82947; J2003; J2704; J3010

== ENCOUNTER 2025-03-22 07:15 | Outpatient (REF) | payer MEDICARE, SELFPAY ==
[2025-03-22 11:33] LABS: Alanine Aminotransferase 21 U/L (0-40); Albumin Level 4.2 g/dL (3.5-5.0); Alkaline Phosphatase 79 U/L (39-117); Aspartate Amino Transferase 26 U/L (5-37); Cholesterol 156 mg/dL (<200); HDL Cholesterol 45 mg/dL (>40); Total Protein 7.4 g/dL (6.5-8.0); Triglycerides 151 mg/dL (<150)
[2025-03-22 11:59] LABS: Reflex LDLD? No
== END 2025-03-22 07:16 | disposition home or self-care (01) ==
LOC: HO.LNP 07:15
PROVIDERS: Visit Provider Internal Medicine
DX: E78.00 Pure hypercholesterolemia, unspecified (principal); E08.40 Diabetes mellitus due to underlying condition with diabetic neuropathy, unspecified
CPT/HCPCS: 80061; 80076; 82947; 83036

== ENCOUNTER 2025-05-30 10:36 | Outpatient (REF) | payer MEDICARE, SELFPAY ==
--- OUTSIDE RECORDS SUMMARY | 2024-12-02 07:06 | XMS_ITS ---
Author Organization Deshaun Rosenberg MD Address [address] [place] [phone] Care Team Providers Care Cotton Jammer Name Role Phone Deshaun Rosenberg Primary Care Provider REASON FOR VISIT RF meds Medications Medication SIG (Take, Route, Frequency, Duration) Notes Start Date End Date Status Gabapentin 600 MG 1 capsule Orally Onc e a day for 90 days 06/05/2023 Active Ambien 5 MG 1 tablet at bedtime as needed Orally Once a day for 30 days 12/02/2024 Active Lotrisone 1-0.05 % 1 application to aff ected area Externally Twice a day for 90 days 12/27/2012 Active Atorvastatin Calcium 40 MG Take 1 tablet by mouth once daily for 90 days Once a day for 90 days Active Tamsulosin HCl 0.4 MG 1 capsule Orally O nce a day for 90 days Active metFORMIN HCl 500 MG TAKE 1 TABLET BY [facility] TWICE DAILY WITH MEALS Orally twice a day for 90 days Active Encounters Encounter Location Date Provider Diagnosis Deshaun Rosenberg MD [address] [place] [phone] 12/02/2024 Deshaun Rosenberg Type 2 diabetes shawn itus without complication E11.9 ; Pure hypercholesterolemia E78.00 ; Primary insomnia F51.01 and Rash R21 Assessments Encounter Date Diagnosis (ICD Code) Assessment Notes Treatment Notes Treatment Clinical Notes Section Notes 12/02/2024 Type 2 diabetes shawn itus without complication (ICD-10 - E11.9) 12/02/2024 Pure hypercholesterolemia (ICD-10 - E78.00) 12/02/2024 Primary insomnia (IC D-10 - F51.01) 12/02/2024 Rash (ICD-10 - R21) Plan Of Treatment Medication Medication Name Sig Start Date Stop Date Notes Gabapentin 600 MG 1 capsule Orally Onc e a day for 90 days 06/05/2023 Ambien 5 MG 1 tablet at bedtime as needed Orally Once a day for 30 days 12/02/2024 Lotrisone 1-0.05 % 1 application to aff ected area Externally Twice a day for 90 days 12/27/2012 Atorvastatin Calcium 40 MG Take 1 tablet by mouth once daily for 90 days Once a day for 90 days Tamsulosin HCl 0.4 MG 1 capsule Orally O nce a day for 90 days metFORMIN HCl 500 MG TAKE 1 TABLET BY MO UTH TWICE DAILY WITH MEALS Orally twice a day for 90 days Next Appt Details Provider Name:Deshaun delacruz, 06/16/2025 10:00:00 AM, [address] [place] [address], [facility], [place], [place], [phone], Progress Notes * Terri CHAPINDOB:[birth year] (69 yo M)Acc No.[id number]:12/02/2024 Patient: Katiuska Terri ISAACS :1955 A ge:69 Y S ex:Male Address:[address] [place] [phone] * Refills Refill metFORMIN HCl Tablet, 500 MG, Orally, 180, TAKE 1 TABLET BY MOUTH TWICE DAILY WITH MEALS, twice a day, 90 days Refill Atorvastatin Calcium Tablet, 40 MG, 90, Take 1 tablet by mouth once daily for 90 days, Once a day, 90 days, Refills=3 Refill Tamsulosin HCl Capsule, 0.4 MG, Orally, 90 Capsule, 1 capsule, Once a day, 90 days, Refills=3 Refill Gabapentin Tablet, 600 MG, Orally, 90 Capsule, 1 capsule, Once a day, 90 days, Refills=3 Refill Ambien Tablet, 5 MG, Orally, 20, 1 tablet at bedtime as needed, Once a day, 30 days, Refills=1 Refill Lotrisone Cream, 1-0.05 %, Externally, 60, 1 application to affected area, Twice a day, 90 days, Refills=3 * true * Date: Generated for Guillermo valle/Zulma/Doreen on: 1 07/31/2024 01:07 PM EST
--- OUTSIDE RECORDS SUMMARY | 2024-12-06 03:00 | XMS_ITS ---
Author Organization Deshaun Rosenberg MD Address [address] [place], [place] [phone] Care Team Providers Care Manager Enterprise Content Management Name Role Phone Deshaun Rosenberg Primary Care Provider Results Component Value Reference Range Notes Liver Panel Reviewed date:12/07/2024 10:25:21 AM Interpretation: Performing Lab:[facility], [address] [place] [phone] Notes/Report: Bilirubin Total 0.4 0.0-1.0 mg/dL Bilirubin Direct 0.2 0.0-0.5 mg/dL Aspartate Amino Transferase 28 5-37 U/L Alanine Aminotransferase 22 0-40 U/L Total Protein 7.4 6.5-8.0 g/dL Albumin Level 4.1 3.5-5.0 g/dL Alkaline Phosphatase 86 39-117 U/L Glucose Fasting Reviewed date:12/07/2024 10:25:05 AM Interpretation: Performing Lab:[facility], [address] [place] [phone] Notes/Report: Glucose Fasting 189 60-99 mg/dL A fasting glucose of 126 mg/dl or greater on more than one occasion is considered diagnostic of diabetes. Lipid Panel with Reflex Reviewed date:12/07/2024 10:27:08 AM Interpretation: Performing Lab:[facility], [address] [place] [phone] Notes/Report: Triglycerides 150 <150 mg/dL Desirable Triglyceride: less than 150 mg/dL Borderline High Triglyceride 150-199 mg/dL High Triglyceride: 200-499 mg/dL Very High Triglyceride: greater than or equal to 5OO mg/dL Cholesterol 186 <200 mg/dL Desirable Cholesterol: less than 200 mg/dL Borderline High Cholesterol: 200-239 mg/dL High Cholesterol: greater than 239 mg/dL LDL Cholesterol Calculated 103 <100 mg/dL Desirable LDL: less than 100 mg/dL Near Optimal/Above Optimal LDL: 110-129 mg/dL Borderline High LDL: 130-159 mg/dL High LDL: 160-189 mg/dL Very High LDL: greater than or equal to 190 mg/dL HDL Cholesterol 53 >40 mg/dL Desirable HDL: greater than 40 mg/dL Note: This HDL assay may give artificially low results in patients with liver disease. Hemoglobin A1c Reviewed date:12/06/2024 01:00:58 PM Interpretation: Performing Lab:[facility], [address] [place] [phone] Notes/Report: Hemoglobin A1c % 6.0 <6.0 % Hemoglobin A1C Reference Range Adults: 4.8 - 6.0 % Non diabetic: < 6.0 % Goal: < 7.0 % Additional Action Suggested: > 8.0 % Note: Hemoglobin A1c results are invalid for patients with abnormal amounts of HbF. Blood transfusions may impact the HbA1c concentration in the patient sample. Estimated Average Glucose 126 eAG = Estimated average glucose which is %A1C expressed as average glucose, using the formula of the Z6X-[id number] Average Glucose study (ADAG), Diabetes Care, Vol.31,#8, Jan. 2007 REASON FOR VISIT fasting lipids Encounters Encounter Location Date Provider Diagnosis Deshaun Rosenberg MD [address] [place] [address] [place] [phone] 12/06/2024 Deshaun Rosenberg Diabetes mellitus du e to underlying condition with diabetic neuropathy E08.40 and Pure hypercholesterolemia E78.00 Assessments Encounter Date Diagnosis (ICD Code) Assessment Notes Treatment Notes Treatment Clinical Notes Section Notes 12/06/2024 Diabetes mellitus du e to underlying condition with diabetic neuropathy (ICD-10 - E08.40) 12/06/2024 Pure hypercholesterolemia (ICD-10 - E78.00) Plan Of Treatment Next Appt Details Provider Name:Deshaun delacruz, 06/16/2025 10:00:00 AM, [address] [facility], [address], [place], [place], [phone], Progress Notes * Terri CHAPIN JDOB:[birth year] (70 yo M)Acc No.[id number]:12/06/2024 Progress Note Patient: Terri APARICIO Provider: Miky Rosenberg MD :1955 A ge:69 Y S ex:Male Date:12/06/2024 Address:[address] [place], [place] [id number] Subjective: * Chief Complaints: * 1 . Fasting lipids. * Medical History: Objective: * Vitals: Assessment: * Assessment: 1. D iabetes mellitus due to underlying condition with diabetic neuropathy - E08.40 (Primary)? 2. P ure hypercholesterolemia - E78.00 Plan: * Treatment: 2. P ure hypercholesterolemia L AB: Liver Panel (Collection Date & Time - 12/06/2024 08:00 AM) L AB: Glucose Fasting (Collection Date & Time - 12/06/2024 08:00 AM) L AB: Lipid Panel with Reflex (Collection Date & Time - 12/06/2024 08:00 AM) L AB: Hemoglobin A1c (Collection Date & Time - 12/06/2024 08:00 AM) * Procedure Codes: 3 6415 VENIPUNCT, ROUTINE* * * The named appointment provid er may or may not be the originator of this progress note, and it is not deemed complete until electronically signed by the appointment provider. Sign off status: Pending * Provider: Miky Rosenberg MD Date: 0 12/06/2024 Generated for Guillermo valle/Zulma/Youngsmitting on: 1 07/31/2024 01:06 PM EST
--- OUTSIDE RECORDS SUMMARY | 2024-12-06 04:15 | XMS_ITS ---
Author Organization Deshaun Rosenberg MD Address [address] [place] [phone] Care Team Providers Care Care Director Rn Name Role Phone Deshaun Rosenberg Primary Care Provider [phone] Allergies No Known Allergies REASON FOR VISIT tick bite and poison aleyda arms and legs Medications Medication SIG (Take, Route, Frequency, Duration) [...] a day for 30 day(s) 09/12/2014 Not-Taking Gabapentin 600 MG 1 capsule Orally Onc e a day for 90 days 06/05/2023 Active Ambien 5 MG 1 tablet at bedtime as needed Orally Once a day for 30 days 12/02/2024 Active Lotrisone 1-0.05 % 1 application to affected area Externally Twice a day for 90 days 12/27/2012 Active Celecoxib 200 MG TAKE 1 CAPSULE BY MOUTH ONCE DAILY WITH FOOD FOR 30 DAYS for 30 Not-Taking dexAMETHasone 4 MG 1 tablet Orally Thre e times a day for 7 days 12/24/2022 Not-Takin g Ciclopirox 0.77% as directed applied topically twice a day for 30 days 04/12/2022 Active Lisinopril-hydroCHLOROthia zide 20-12.5 MG Take 1 tablet by mouth once daily Active metFORMIN HCl 500 MG TAKE 1 TABLET BY [facility] TWICE DAILY WITH MEALS Orally twice a day for 90 days Active Atorvastatin Calcium 40 MG Take 1 tablet by mouth once daily for 90 days Once a day for 90 days Active Tamsulosin HCl 0.4 MG 1 capsule Orally O nce a day for 90 days Active Doxycycline Hyclate 100 MG 1 capsule Ora lly twice a day for 14 days 12/06/2024 Active Vital Signs Height 64 in 12/06/2024 Weight 196 lbs 12/06/2024 BMI 33.64 kg/m2 12/06/2024 BP not taken Poison Aleyda on a tito Encounters Encounter Location Date Provider Diagnosis Deshaun Rosenberg MD [address] [place] [address] [place] [phone] 12/06/2024 Deshaun Rosenberg Tick bite W57.XXXA and Skin rash R21 Assessments Encounter Date Diagnosis (ICD Code) Assessment Notes Treatment Notes Treatment Clinical Notes Section Notes 12/06/2024 Tick bite (ICD-10 - W57.XXXA) patient verbalized understanding of medication and directions for use 12/06/2024 Skin rash (ICD-10 - R21) Plan Of Treatment Medication Medication Name Sig Start Date Stop Date Notes Doxycycline Hyclate 100 MG 1 capsule Ora lly twice a day for 14 days 12/06/2024 Treatment Notes Assessment Notes Tick bite patient verbalized u nderstanding of medication and directions for use Pending Test Test Name Order Date Tick-borne Disease Molecular 12/06/2024 Next Appt Details Provider Name:Deshaun Dominguez ier, 06/16/2025 10:00:00 AM, [address] [place] [address] Drive, Suite [facility], [place], [place], [phone], Progress Notes * Terri CHAPINDOB:[birth year] (69 yo M)Acc No.[id number]:12/06/2024 Progress Notes Patient: Terri APARICIO Provider: Miky Rosenberg MD :1955 A ge:69 Y S ex:Male Date:12/06/2024 Address:[address] [place] [address], [phone] Subjective: * Chief Complaints: * T ick bite and poison aleyda arms and legs * HPI: S ymptom(s): patient is a 69 yo male here with complaint of tick bite. has a tick bite on abdomen and not healing up after 6 weeks.got poison aleyda on legs but is starting to go away. * ROS: G eneral/Constitutional: Denies C hills. D enies F atigue. D enies F ever. D enies H eadache. E NT: Denies S ore throat. R espiratory: Denies C ough. D enies S hortness of breath at rest. D enies S hortness of breath with exertion. G astrointestinal: Denies D iarrhea. D enies N ausea. * Medical History: * Surgical History: * Hospitalization/Major Diagno stic Procedure: * Medications: T akingCiclopirox 0.77% cream as directed applied topically twice a day Lisinopril-hydroCHLOROthiazide 20-12.5 MG Tablet Take 1 tablet by mouth once daily metFORMIN HCl 500 MG Tablet TAKE 1 TABLET BY MOUTH TWICE DAILY WITH MEALS Orally twice a day Atorvastatin Calcium 40 MG Tablet Take 1 tablet by mouth once daily for 90 days Once a day Tamsulosin HCl 0.4 MG Capsule 1 capsule Orally Once a day Gabapentin 600 MG Tablet 1 capsule Orally Once a day Ambien 5 MG Tablet 1 tablet at bedtime as needed Orally Once a day Lotrisone 1-0.05 % Cream 1 application to affected area Externally Twice a day Taking Ciclopirox 0.77% cream as directed applied topically twice a day Taking Lisinopril-hydroCHLOROthiazide 20-12.5 MG Tablet Take 1 tablet by mouth once daily Taking metFORMIN HCl 500 MG Tablet TAKE 1 TABLET BY MOUTH TWICE DAILY WITH MEALS Orally twice a day Taking Atorvastatin Calcium 40 MG Tablet Take 1 tablet by mouth once daily for 90 days Once a day Taking Tamsulosin HCl 0.4 MG Capsule 1 capsule Orally Once a day Taking Gabapentin 600 MG Tablet 1 capsule Orally Once a day Taking Ambien 5 MG Tablet 1 tablet at bedtime as needed Orally Once a day Taking Lotrisone 1-0.05 % Cream 1 application to affected area Externally Twice a day Not-Taking/PRNCelecoxib 200 MG Capsule TAKE 1 CAPSULE BY MOUTH ONCE DAILY WITH FOOD FOR 30 DAYS dexAMETHasone 4 MG Tablet 1 tablet Orally Three times a day Cyclobenzaprine HCl 5 MG Tablet 1 tab Orally 3 times a day Ibuprofen 800 MG Tablet 1 tablet with food or milk as needed Orally Three times a day Viagra 50 MG Tablet 1 tablet as needed Orally Once a day LORazepam 0.5 MG Tablet 1 tablet as needed Orally Once a day Ibuprofen 800 MG Tablet 1 tablet Orally Three times a day Medication List reviewed and reconciled with the patientNot-Taking/PRN Celecoxib 200 MG Capsule TAKE 1 CAPSULE BY MOUTH ONCE DAILY WITH FOOD FOR 30 DAYS Not-Taking/PRN dexAMETHasone 4 MG Tablet 1 tablet Orally Three times a day Not-Taking/PRN Cyclobenzaprine HCl 5 MG Tablet 1 tab Orally 3 times a day Not-Taking/PRN Ibuprofen 800 MG Tablet 1 tablet with food or milk as needed Orally Three times a day Not-Taking/PRN Viagra 50 MG Tablet 1 tablet as needed Orally Once a day Not-Taking/PRN LORazepam 0.5 MG Tablet 1 tablet as needed Orally Once a day Not-Taking/PRN Ibuprofen 800 MG Tablet 1 tablet Orally Three times a day Medication List reviewed and reconciled with the patient * Allergies: N .K.D.A.yes[Allergies Verified] Objective: * Vitals: H t: 64, Wt: 196, BMI:33.64, Wt-k.91. BP not taken Poison Aleyda on arms. * Examination: G eneral Examination: GENERAL APPEARANCE: a lert, well hydrated, in no distress.? Assessment: * Assessment: 1. S kin rash - R21 (Primary) 2 . T ick bite - W57.XXXA Plan: * Treatment: * Procedure Codes: * * Sign off status: Completed true * Provider: Miky Rosenberg MD Date: 0 12/06/2024 Generated for Guillermo valle/Zulma/Doreen on: 07/31/2024 01:07 PM EST History and Physical Notes * HPI (History of Present Illness) Category Sub-Category Detail Notes Category Not es Symptom(s) patient is a 69 yo male here with complaint of tick bite. has a tick bite on abdomen and not healing up after 6 weeks.got poison aleyda on legs but is starting to go away Examination Category Sub-Category Detail Notes Category Not es General Examination GENERAL APPEARANCE: alert, w ell hydrated, in no distress
--- OUTSIDE RECORDS SUMMARY | 2024-12-13 04:00 | XMS_ITS ---
Author Organization Deshaun Rosenberg MD Address [address] [place] [phone] Care Team Providers Care Director Of Construction Name Role Phone Deshaun Rosenberg Primary Care Provider [phone] Allergies No Known Allergies REASON FOR VISIT 6 month Medications Medication SIG (Take, Route, Frequency, Duration) Notes Start Date End Date Status LORazepam 0.5 MG 1 tablet as needed Orally Once a day for 5 days 04/14/2018 Not-Taking Rosuvastatin Calcium 40 MG 1 tablet Oral ly Once a day for 30 days 12/13/2024 Active Ibuprofen 800 MG 1 tablet Orally Thre e times a day for 30 day(s) 09/12/2014 Not-Taking Viagra 50 MG 1 tablet as needed Orally Once a day for 30 days 12/22/2012 Not-Taking Celecoxib 200 MG TAKE 1 CAPSULE BY MOUTH ONCE DAILY WITH FOOD FOR 30 DAYS for 30 Not-Taking dexAMETHasone 4 MG 1 tablet Orally Thre e times a day for 7 days 12/24/2022 Not-Takin g Doxycycline Hyclate 100 MG 1 capsule Ora lly twice a day for 14 days 12/06/2024 Not-Taking Cyclobenzaprine HCl 5 MG 1 tab Orally 3 times a day for 14 days 12/31/2022 Not-Taking Ibuprofen 800 MG 1 tablet with food o r milk as needed Orally Three times a day for 90 days 10/24/2017 Not-Taking Gabapentin 600 MG 1 capsule Orally Onc e a day for 90 days 06/05/2023 Active Ambien 5 MG 1 tablet at bedtime as needed Orally Once a day for 30 days 12/02/2024 Active Tamsulosin HCl 0.4 MG 1 capsule Orally O nce a day for 90 days Active Lotrisone 1-0.05 % 1 application to affected area Externally Twice a day for 90 days 12/27/2012 Active metFORMIN HCl 500 MG TAKE 1 TABLET BY MO UT TWICE DAILY WITH MEALS Orally twice a day for 90 days Active Ciclopirox 0.77% as directed applied topically twice a day for 30 days 04/12/2022 Active Lisinopril-hydroCHLOROthia zide 20-12.5 MG Take 1 tablet by mouth once daily Active Vital Signs Blood pressure systolic 148 mm Hg 12/14/19 25 Blood pressure diastolic 70 mm Hg 025 Height 64 in 12/13/2024 Weight 199 lbs 12/13/2024 BMI 34.15 kg/m2 12/13/2024 weight is up 3 pounds since 12-06-24 Encounters Encounter Location Date Provider Diagnosis Deshaun Rosenberg MD [address] [place] [address] [place] [phone] 12/13/2024 Deshaun Rosenberg Diabetes mellitus du e to underlying condition with diabetic neuropathy E08.40 ; Tick bite W57.XXXA and Pure hypercholesterolemia E78.00 Assessments Encounter Date Diagnosis (ICD Code) Assessment Notes Treatment Notes Treatment Clinical Notes Section Notes 12/13/2024 Diabetes mellitus du e to underlying condition with diabetic neuropathy (ICD-10 - E08.40) 12/13/2024 Tick bite (ICD-10 - W57.XXXA) need results from the blood work 12/13/2024 Pure hypercholesterolemia (ICD-10 - E78.00) patient verbalized understandingof medication and directions for use 12/13/2024 Other advised to get shingles and covid Plan Of Treatment Medication Medication Name Sig Start Date Stop Date Notes Atorvastatin Calcium 40 MG Take 1 tablet by mouth once daily for 90 days Once a day Rosuvastatin Calcium 40 MG 1 tablet Oral ly Once a day for 30 days 12/13/2024 Treatment Notes Assessment Notes Tick bite need results from e blood work Pure hypercholesterolemia patient verbal ized understandingof medication and directions for use Other advised to get shing les and covid Pending Test Test Name Order Date Hemoglobin A1c 12/13/2024 Glucose, finger stick 12/13/2024 Next Appt Details Provider Name:Deshaun delacruz, 06/16/2025 10:00:00 AM, [address], [address], [place], [place], [phone], Progress Notes * Terri CHAPINDOB:[birth year] (69 yo M)Acc No.[id number]:12/13/2024 Progress Notes Patient: Terri APARICIO Provider: Miky Rosenberg MD :1955 A ge:69 Y S ex:Male Date:12/13/2024 Address:[address] [place], [place] [phone] Subjective: * Chief Complaints: * 6 month * HPI: S ymptom(s): patient is a 69 yo male here for 6 month follow up visit/ TICK BITE is healing slowly. * ROS: G eneral/Constitutional: Denies C hills. D enies F atigue. D enies F ever. D enies H eadache. E NT: Denies S ore throat. E ndocrine: Denies D ifficulty sleeping. D enies D izziness.?Denies E xcessive sweating. D enies E xcessive thirst. D enies F requent urination. R espiratory: Denies C ough. D enies [...] to affected area Externally Twice a day Not-Taking/PRNDoxycycline Hyclate 100 MG Capsule 1 capsule Orally twice a day Celecoxib 200 MG Capsule TAKE 1 CAPSULE [...] List reviewed and reconciled with the patientNot-Taking/PRN Doxycycline Hyclate 100 MG Capsule 1 capsule Orally twice a day Not-Taking/PRN Celecoxib 200 MG Capsule TAKE 1 [...] Objective: * Vitals: H t: 64, Wt: 199, BMI:34.15, BP:148/70, Repeat BP:138/80, Wt-k.27. weight is up 3 pounds since 12-06-24. * P ast Orders: L ab:Liver Panel (Order Date - 12/06/2024) (Collection Date & Time - 12/06/2024 08:00 AM) Value Reference Range Bilirubin Total 0.4 0.0-1.0 - mg/dL Bilirubin Direct 0.2 0.0-0.5 - mg/dL Aspartate Amino Transferase 28 5-37 - U/L Alanine Aminotransferase 22 0-40 - U/L Total Protein 7.4 6.5-8.0 - g/dL Albumin Level 4.1 3.5-5.0 - g/dL Alkaline Phosphatase 86 39-117 - U/L L ab:Glucose Fasting (Order Date - 12/06/2024) (Collection Date & Time - 12/06/2024 08:00 AM) Value Reference Range Glucose Fasting 189 H 60-99 - mg/dL L ab:Lipid Panel with Reflex (Order Date - 12/06/2024) (Collection Date & Time - 12/06/2024 08:00 AM) Value Reference Range Triglycerides 150 H <150 - mg/dL Cholesterol 186 <200 - mg/dL LDL Cholesterol Calculated 103 H <100 - mg/dL HDL Cholesterol 53 >40 - mg/dL L ab:Hemoglobin A1c (Order Date - 12/06/2024) (Collection Date & Time - 12/06/2024 08:00 AM) Value Reference Range Hemoglobin A1c % 6.0 <6.0 - % Estimated Average Glucose 126 - mg/dL * Examination: G eneral Examination: GENERAL APPEARANCE: a lert, well hydrated, in no distress.? HEAD: n ormocephalic. SKIN: g ood turgor. HEART: r egular rate and rhythm, no murmurs, rubs, gallops.? LUNGS: n o wheezes, rales, rhonchi, good air movement, clear to auscultation bilaterally. Assessment: * Assessment: 1. D iabetes mellitus due to underlying condition with diabetic neuropathy - E08.40 (Primary)? 2. T ick bite - W57.XXXA 3 . P ure hypercholesterolemia - E78.00 Plan: * Treatment: 2. T ick bite Notes: need results from the blood work 3. P ure hypercholesterolemia Start Rosuvastatin Calcium Tablet, 40 MG, 1 tablet, Orally, Once a day, 30 days, 30, Refills 11.? Notes: patient verbalized understandingof medication and directions for use 4. O thers Notes: advised to get shingles and covid * Procedure Codes: 8 2947 ASSAY, GLUCOSE, BLOOD QUANT, Modifiers: QW 82452 GLYCATED HEMOGLOBIN TEST, Modifiers: QW * * Sign off status: Completed true * Provider: Miky Rosenberg MD Date: 0 12/13/2024 Generated for Guillermo valle/Zulma/eTransmitting on: 1 07/31/2024 01:06 PM EST History and Physical Notes * HPI (History of Present Illness) Category Sub-Category Detail Notes Category Not es Symptom(s) patient is a 69 yo male here for 6 month follow up visit/ TICK BITE is healing slowly Examination Category Sub-Category Detail Notes Category Not es General Examination GENERAL APPEARANCE: alert, w ell hydrated, in no distress HEAD: normocephalic HEART: regular rate and rhy thm, no murmurs, rubs, gallops LUNGS: no wheezes, rales, r honchi, good air movement, clear to auscultation bilaterally SKIN: good turgor
--- OUTSIDE RECORDS SUMMARY | 2024-12-16 04:00 | XMS_ITS ---
Author Organization Deshaun Rosenberg MD Address [address] [place], [place] [phone] Care Team Providers Care Expansion Joint Finisher Name Role Phone Deshaun Rosenberg Primary Care Provider [phone] Results Component Value Reference Range Notes Tick-borne Disease Molecular Reviewed date:12/18/2024 09:01:49 AM Interpretation: Performing Lab:[facility], [address] [place] [phone] Notes/Report: Babesia Microti DNA, RT-PCR NOT DETECTED NOT DETECTED This test was developed and its analytical performance characteristics have been determined by [employer]. It has not been cleared or approved by the FDA. This assay has been validated pursuant to the CLIA regulations and is used for clinical purposes. THIS TEST WAS PERFORMED AT: [email or web address] [address] [place] [phone] QUITA DEL CASTILLO MD E.Chaffeensis DNA RT-PCR NOT DETECTED NOT DETECTED This test was developed and its analytical performance characteristics have been determined by [employer]. It has not been cleared or approved by the FDA. This assay has been validated pursuant to the CLIA regulations and is used for clinical purposes. THIS TEST WAS PERFORMED AT: [email or web address] [address] [place] [phone] QUITA DEL CASTILLO MD A. Phagocytphilium DNA,RT-PCR NOT DETECTED NOT DETECTE D This test was developed and its analytical performance characteristics have been determined by [employer]. It has not been cleared or approved by the FDA. This assay has been validated pursuant to the CLIA regulations and is used for clinical purposes. Lyme(Borrelia ssp)DNA RT-PCR NOT DETECTED NOT DETECTED This test was developed and its analytical performance characteristics have been determined by [employer]. It has not been cleared or approved by the FDA. This assay has been validated pursuant to the CLIA regulations and is used for clinical purposes. For additional information, please refer to https://education.Swoopo/faq/ykq509 (This link is being provided for informational/ educational purposes only.) THIS TEST WAS PERFORMED AT: [email or web address] [address] [place] [phone] QUITA DEL CASTILLO MD Borrelia Miyamotoi,DNA RT-PCR NOT DETECTED NOT DETECTE D This test was developed and its analytical performance characteristics have been determined by [employer]. It has not been cleared or approved by the FDA. This assay has been validated pursuant to the CLIA regulations and is used for clinical purposes. THIS TEST WAS PERFORMED AT: [email or web address] [address] [place] [phone] QUITA DEL CASTILLO MD Tick Mol. Panel Cmmt SEE NOTE A negative result does not exclude Borrelia infection as the concentration of the organism in blood may be low or non-existent in patients with Lyme disease, and may depend on timing of specimen collection from onset of symptoms. Clinical correlation is recommended and additional studies such as serologic testing may be indicated. THIS TEST WAS PERFORMED AT: [email or web address] [address] [place] [phone] QUITA DEL CASTILLO MD REASON FOR VISIT Tick Borne Encounters Encounter Location Date Provider Diagnosis Deshaun Rosenberg MD [address] [place] [phone] 12/16/2024 Deshaun Rosenberg Tick bite W57.XXXA and Skin rash R21 Assessments Encounter Date Diagnosis (ICD Code) Assessment Notes Treatment Notes Treatment Clinical Notes Section Notes 12/16/2024 Tick bite (ICD-10 - W57.XXXA) 12/16/2024 Skin rash (ICD-10 - R21) Plan Of Treatment Next Appt Details Provider Name:Deshaun delacruz, 06/16/2025 10:00:00 AM, [address] [facility], [address], [place], [place], [phone], Progress Notes * Terri CHAPIN:[birth year] (70 yo M)Acc No.[id number]:12/16/2024 Progress Note Patient: Terri APARICIO Provider: Miky Rosenberg MD :1955 A ge:69 Y S ex:Male Date:12/16/2024 Address:[address] [place], [place] [phone] Subjective: * Chief Complaints: * 1 . Tick Borne. * Medical History: Objective: * Vitals: Assessment: * Assessment: 1. T ick bite - W57.XXXA (Primary) 2 . S kin rash - R21 Plan: * Treatment: * Procedure Codes: 3 6415 VENIPUNCT, ROUTINE* * * The named appointment provid er may or may not be the originator of this progress note, and it is not deemed complete until electronically signed by the appointment provider. Sign off status: Pending * Provider: Miky Rosenberg MD Date: 0 12/16/2024 Generated for Guillermo valle/Zulma/Tyleritting on: 1 07/31/2024 01:06 PM EST
--- OUTSIDE RECORDS SUMMARY | 2025-01-10 08:40 | XMS_ITS ---
Author Organization [facility] Address [address] [place] [phone] Care Team Providers Care Finish Cleaner Name Role Phone Deshaun Rosenberg MD Primary Care Provider Hudson Gomez [phone] REASON FOR VISIT screening,hx polyps,serrated colon polyp of Encounters Encounter Location Date Provider Diagnosis [facility] [address] [place] [phone] 01/10/2025 Hudson Haas Plan Of Treatment No Information Progress Notes * AMY SANABRIAENCEDOB: [birth year] (70 yo M)Acc No.[id number]:01/10/2025 COLON WITH MAC Patient: RAHEL APARICIO Provider: Luis Antonio Haas MD :1955 A ge:69 Y S ex:Male Date:01/10/2025 Address:[address] [place], [place] [phone] Pcp:Deshaun Rosenberg MD Subjective: * Chief Complaints: * S creening,hx polyps,serrated colon polyp of Billing Information: * Procedure Codes: * The named appointment provid er may or may not be the originator of this progress note, and it is not deemed complete until electronically signed by the appointment provider. Sign off status: Pending * Provider: Luis Antonio Haas MD Date: 0 01/10/2025 Generated for Refugioi ng/Fataeg/eTransmitting on: 07/31/2024 01:06 PM EST
--- OUTSIDE RECORDS SUMMARY | 2025-03-22 02:15 | XMS_ITS ---
Author Organization Deshaun Rosenberg MD Address [address] [place], [place] [phone] Care Team Providers Care Name Role Phone Deshaun Rosenberg Primary Care Provider [phone] Results Component Value Reference Range Notes Liver Panel Reviewed date:03/22/2025 12:30:19 PM Interpretation: Performing Lab:[facility], [address] [place] [phone] Notes/Report: Bilirubin Total 0.6 0.0-1.0 mg/dL Bilirubin Direct 0.2 0.0-0.5 mg/dL Aspartate Amino Transferase 26 5-37 U/L Alanine Aminotransferase 21 0-40 U/L Total Protein 7.4 6.5-8.0 g/dL Albumin Level 4.2 3.5-5.0 g/dL Alkaline Phosphatase 79 39-117 U/L Glucose Fasting Reviewed date:03/22/2025 12:30:08 PM Interpretation: Performing Lab:[facility], [address] [place] [phone] Notes/Report: Glucose Fasting 147 60-99 mg/dL A fasting glucose of 126 mg/dl or greater on more than one occasion is considered diagnostic of diabetes. Lipid Panel with Reflex Reviewed date:03/22/2025 12:37:50 PM Interpretation: Performing Lab:[facility], [address] [place] [phone] Notes/Report: Triglycerides 151 <150 mg/dL Desirable Triglyceride: less than 150 mg/dL Borderline High Triglyceride 150-199 mg/dL High Triglyceride: 200-499 mg/dL Very High Triglyceride: greater than or equal to 5OO mg/dL Cholesterol 156 <200 mg/dL Desirable Cholesterol: less than 200 mg/dL Borderline High Cholesterol: 200-239 mg/dL High Cholesterol: greater than 239 mg/dL LDL Cholesterol Calculated 81 <100 mg/dL Desirable LDL: less than 100 mg/dL Near Optimal/Above Optimal LDL: 110-129 mg/dL Borderline High LDL: 130-159 mg/dL High LDL: 160-189 mg/dL Very High LDL: greater than or equal to 190 mg/dL HDL Cholesterol 45 >40 mg/dL Desirable HDL: greater than 40 mg/dL Note: This HDL assay may give artificially low results in patients with liver disease. Hemoglobin A1c Reviewed date:03/22/2025 12:29:52 PM Interpretation: Performing Lab:[facility], [address] [place] [phone] Notes/Report: Hemoglobin A1c % 6.0 <6.0 % [...] average glucose, using the formula of the E4V-Izeoxxe Average Glucose study (ADAG), Diabetes Care, Vol.31,#8, Jan. 2007 REASON FOR VISIT LIPID PANEL, LIVER PANEL Encounters Encounter Location Date Provider Diagnosis Deshaun Rosenberg MD [address] [place] [address] [place] [phone] 03/22/2025 Deshaun Rosenberg Diabetes mellitus du e to underlying condition with diabetic neuropathy E08.40 and Pure hypercholesterolemia E78.00 Assessments Encounter Date Diagnosis (ICD Code) Assessment Notes Treatment Notes Treatment Clinical Notes Section Notes 03/22/2025 Diabetes mellitus du e to underlying condition with diabetic neuropathy (ICD-10 - E08.40) 03/22/2025 Pure hypercholesterolemia (ICD-10 - E78.00) Plan Of Treatment Next Appt Details Provider Name:Deshaun delacruz, 06/16/2025 10:00:00 AM, [address] [place] [address], [address] [facility], [place], [place], [phone], Progress Notes * TEBALDI, Terri JDOB:[birth year] (70 yo M)Acc No.[id number]:03/22/2025 Progress Note Patient: Terri APARICIO Provider: Miky Rosenberg MD :1955 A ge:69 Y S ex:Male Date:03/22/2025 Address:[address] [place], [place] [phone] Subjective: * Chief Complaints: * 1 . LIPID PANEL, LIVER PANEL. * Medical History: Objective: * Vitals: Assessment: * Assessment: 1. D iabetes mellitus due to underlying condition with diabetic neuropathy - E08.40 (Primary)? 2. P ure hypercholesterolemia - E78.00 Plan: * Treatment: 2. P ure hypercholesterolemia L AB: Liver Panel (Collection Date & Time - 03/22/2025 07:15 AM) L AB: Glucose Fasting (Collection Date & Time - 03/22/2025 07:15 AM) L AB: Lipid Panel with Reflex (Collection Date & Time - 03/22/2025 07:15 AM) L AB: Hemoglobin A1c (Collection Date & Time - 03/22/2025 07:15 AM) * Procedure Codes: 3 6415 VENIPUNCT, ROUTINE* * * The named appointment provid er may or may not be the originator of this progress note, and it is not deemed complete until electronically signed by the appointment provider. Sign off status: Pending * Provider: Miky Rosenberg MD Date: 1 Generated for Guillermo valle/Zulma/Youngsmitting on: 07/31/2024 01:07 PM EST
--- OUTSIDE RECORDS SUMMARY | 2025-05-03 06:36 | XMS_ITS ---
Author Organization Deshaun Rosenberg MD Address [address] [place] [phone] Care Team Providers Care Unit Aid Name Role Phone Deshaun Rosenberg Primary Care Provider REASON FOR VISIT New Refill Request Medications Medication SIG (Take, Route, Frequency, Duration) Notes Start Date End Date Status Lisinopril-hydroCHLOROthia zide 20-12.5 MG Take 1 tablet by mouth once daily for 90 Active Gabapentin 600 MG 1 capsule Orally Onc e a day for 90 days 06/05/2023 Active Ibuprofen 800 MG 1 tablet with food o r milk as needed Orally Three times a day for 90 days 10/24/2017 Active Encounters Encounter Location Date Provider Diagnosis Deshaun Rosenberg MD [address] [place] [phone] 05/03/2025 Deshaun Rosenberg Essential hypertension I10 ; Primary insomnia F51.01 and 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 Assessments Encounter Date Diagnosis (ICD Code) Assessment Notes Treatment Notes Treatment Clinical Notes Section Notes 05/03/2025 Essential hypertension (ICD-10 - I10) 05/03/2025 Primary insomnia (ICD-10 - F51.01) 05/03/2025 Hand arthritis (ICD-10 - M19.049) Plan Of Treatment Medication Medication Name Sig Start Date Stop Date Notes Lisinopril-hydroCHLOROthiazi de 20-12.5 MG Take 1 tablet by mouth once daily for 90 Gabapentin 600 MG 1 capsule Orally Onc e a day for 90 days 06/05/2023 Ibuprofen 800 MG 1 tablet with food o r milk as needed Orally Three times a day for 90 days 10/24/2017 Next Appt Details Provider Name:Deshaun Mckeon Rehanadakotah nubia, 06/16/2025 10:00:00 AM, [address], [address], [place], [place], [phone], Progress Notes * Terri CHAPINDOB:[birth year] (70 yo M)Acc No.[id number]:05/03/2025 Patient: Katiuska ISAACSTerri :1955 A ge:70 Y S ex:Male Address:[address] [place] [phone] * Refills Refill Lisinopril-hydroCHLOROthiazide Tablet, 20-12.5 MG, 90 Tablet, Take 1 tablet by mouth once daily, 90, Refills=4 Refill Gabapentin Tablet, 600 MG, Orally, 90 Capsule, 1 capsule, Once a day, 90 days, Refills=3 Refill Ibuprofen Tablet, 800 MG, Orally, 270, 1 tablet with food or milk as needed, Three times a day, 90 days, Refills=3 * true * Date: Generated for Guillermo valle/Zulma/Tyleritting on: 07/31/2024 01:06 PM EST
--- OUTSIDE RECORDS SUMMARY | 2025-05-03 06:36 | XMS_ITS ---
Author Organization Deshaun Rosenberg MD Address [address] [place] [phone] Care Team Providers Care Candy Spreader Name Role Phone Deshaun Rosenberg Primary Care Provider REASON FOR VISIT New Refill Request Encounters Encounter Location Date Provider Diagnosis Deshaun Rosenberg MD [address] [facility] [address] [place] [phone] 05/03/2025 Deshaun Rosenberg Plan Of Treatment Next Appt Details Provider Name:Deshaun Dominguez ier, 06/16/2025 10:00:00 AM, [address] [facility], [address] [facility], [place], [place], [phone], Progress Notes * Terri CHAPINDOB:[birth year] (70 yo M)Acc No.[id number]:05/03/2025 Patient: Katiuska Terri ISAACS :1955 A ge:70 Y S ex:Male Address:[address] [place] [address] * true * Date: Generated for Guillermo valle/Zulma/eTransmitting on: 07/31/2024 01:07 PM EST
--- OUTSIDE RECORDS SUMMARY | 2025-05-03 06:39 | XMS_ITS ---
Author Organization Deshaun Rosenberg MD Address [address] [place] [phone] Care Team Providers Care Food Cooking Machine Operator Name Role Phone Deshaun Rosenberg Primary Care Provider REASON FOR VISIT New Refill Request Encounters Encounter Location Date Provider Diagnosis Deshaun Rosenberg MD 10 [facility] [address] [place] [phone] 05/03/2025 Deshaun Rosenberg Plan Of Treatment Next Appt Details Provider Name:Deshaun Dominguez ier, 06/16/2025 10:00:00 AM, 10 [facility], Suite [facility], [place] [employer], [place], [phone], Progress Notes * Terri CHAPINDOB:[birth year] (70 yo M)Acc No.[id number]:05/03/2025 Patient: Katiuska Terri ISAACS :1955 A ge:70 Y S ex:Male Address:[address] [place] [address] * true * Date: Generated for Guillermo valle/Zulma/eTransmitting on: 07/31/2024 01:08 PM EST
--- OUTSIDE RECORDS SUMMARY | 2025-05-30 02:45 | XMS_ITS ---
Author Organization Deshaun Rosenberg MD Address [address] [place], [place] [phone] Care Team Providers Care Stone Banker Name Role Phone Deshaun Rosenberg Primary Care Provider Results Component Value Reference Range Notes PSA,Total (Free>4and<10) (No t yet reviewed by provider) Interpretation: Performing Lab:[facility], [address] [place] [phone] Notes/Report: PSA,Total (Free>4and<10) 4.80 0.00-4.00 ng/mL PSA methodology: Edmonds Alinity i Chemiluminescent Microparticle Immunoassay (CMIA) Complete Blood Count Auto Di ff Reviewed date:05/30/2025 12:03:13 PM Interpretation: Performing Lab:[facility], [address] [place] [phone] Notes/Report: White Blood Count 9.9 4.8-10.8 X10*3/uL Red Blood Count 4.57 4.60-5.80 X10*6/uL Hemoglobin 13.6 14.0-18.0 g/dl Hematocrit 42.1 42.0-52.0 % Mean Corpuscular Volume 92.1 80.0-98.0 fL Mean Corpuscular Hemoglobin 29.8 27.0-33.0 pg Mean Corpuscular HGB Conc 32.3 31.0-36.0 g/dl Red Cell Distribution Width 13.3 11.0-16.0 % Platelet Count 261 160-400 X10*3/uL Mean Platelet Volume 10.7 9.4-12.4 fL Neutrophils Percent Auto 60.0 45-73 % Imm Gran Pct Auto 0.4 0.0-0.4 % Lymphocytes Percent Auto 26.6 20-40 % Monocytes Percent Auto 10.3 2-11 % Eosinophils Percent Auto 2.2 0-4 % Basophils Percent Auto 0.5 0-2 % NRBC Pct Auto 0.0 0.0-0.2 /100WBC Neutrophils Absolute Auto 5.9 2.0-8.3 x10*3/u L Imm Gran Abs Auto 0.04 0.00-0.03 X10*3/uL Lymphocytes Absolute Auto 2.6 1.2-4.9 X10*3/u L Monocytes Absolute Auto 1.0 0.1-1.2 X10*3/uL Eosinophils Absolute Auto 0.2 0.0-0.4 X10*3/u L Basophils Absolute Auto 0.1 0.0-0.2 X10*3/uL NRBC Abs Auto 0.000 0.0-0.012 X10*3/uL Lipid Panel Reviewed date:05/30/2025 11:57:49 AM Interpretation: Performing Lab:[address] [phone] Notes/Report: Triglycerides 113 <150 mg/dL Desirable Triglyceride: less than 150 mg/dL Borderline High Triglyceride 150-199 mg/dL High Triglyceride: 200-499 mg/dL Very High Triglyceride: greater than or equal to 5OO mg/dL Cholesterol 135 <200 mg/dL Desirable Cholesterol: less than 200 mg/dL Borderline High Cholesterol: 200-239 mg/dL High Cholesterol: greater than 239 mg/dL LDL Cholesterol Calculated 61 <100 mg/dL Desirable LDL: less than 100 mg/dL Near Optimal/Above Optimal LDL: 110-129 mg/dL Borderline High LDL: 130-159 mg/dL High LDL: 160-189 mg/dL Very High LDL: greater than or equal to 190 mg/dL HDL Cholesterol 52 >40 mg/dL Desirable HDL: greater than 40 mg/dL Note: This HDL assay may give artificially low results in patients with liver disease. UA ClnCatch+Micro w/rflx Cul t Reviewed date:05/30/2025 12:04:55 PM Interpretation: Performing Lab:[address] [phone] Notes/Report: Urine, Clean Catch Color Urine Yellow Appearance Urine Clear PH 5.0 5.0-9.0 Glucose Urine UA Negative Negative mg/dL Urine Blood Negative Negative Specific [place] - Urine 1.025 1.005-1.025 Urine Protein Trace Neg-Trace mg/dL Urine Ketones Negative Negative mg/dL Nitrite Urine Negative Negative Leukocyte Esterase Urine Negative Negative RBC Urine 0-2 0-2 /HPF WBC Urine 0-5 0-5 /HPF Squamous Epithelial Cell Urine 3-5 0-2 /HPF Bacteria Urine None Seen None Seen Hyaline Casts Urine 11-20 0-2 /LPF Granular Casts Urine Present REASON FOR VISIT yearly fasting labs Encounters Encounter Location Date Provider Diagnosis Deshaun Rosenberg MD [address] [place] [address] [place] [phone] 05/30/2025 Deshaun Rosenberg Diabetes mellitus du e to underlying condition with diabetic neuropathy E08.40 ; Essential hypertension I10 and Pure hypercholesterolemia E78.00 Assessments Encounter Date Diagnosis (ICD Code) Assessment Notes Treatment Notes Treatment Clinical Notes Section Notes 05/30/2025 Diabetes mellitus du e to underlying condition with diabetic neuropathy (ICD-10 - E08.40) 05/30/2025 Essential hypertensi on (ICD-10 - I10) 05/30/2025 Pure hypercholesterolemia (ICD-10 - E78.00) Plan Of Treatment Pending Test Test Name Order Date Comprehensive [place]. Panel Fast PSA,Total (Free>4and<10) 05/30/2025 Next Appt Details Provider Name:Deshaun Dominguez ier, 06/16/2025 10:00:00 AM, [address] [place] [address], Suite [facility], [place], [place], [phone], Progress Notes * Terri CHAPINDOB:[birth year] (70 yo M)Acc No.[id number]:05/30/2025 Progress Note Patient: Katiuska ISAACSTerri Jeferson Provider: Miky Rosenberg MD :1955 A ge:70 Y S ex:Male Date:05/30/2025 Address:[address] [place], [place] [phone] Subjective: * Chief Complaints: * 1 . Yearly fasting labs. * Medical History: Objective: * Vitals: Assessment: * Assessment: 1. D iabetes mellitus due to underlying condition with diabetic neuropathy - E08.40 (Primary)? 2. E ssential hypertension - I10 3 . P ure hypercholesterolemia - E78.00 Plan: * Treatment: 2. E ssential hypertension L AB: Comprehensive [place]. Panel Fast L AB: PSA,Total (Free>4and<10) (Collection Date & Time - 05/30/2025 07:45 AM) L AB: Complete Blood Count Auto Diff (Collection Date & Time - 05/30/2025 07:45 AM) L AB: Lipid Panel (Collection Date & Time - 05/30/2025 07:45 AM) L AB: UA ClnCatch+Micro w/rflx Cult (Collection Date & Time - 05/30/2025 07:45 AM) 3. P ure hypercholesterolemia L AB: Comprehensive [place]. Panel Fast L AB: PSA,Total (Free>4and<10) (Collection Date & Time - 05/30/2025 07:45 AM) L AB: Complete Blood Count Auto Diff (Collection Date & Time - 05/30/2025 07:45 AM) L AB: Lipid Panel (Collection Date & Time - 05/30/2025 07:45 AM) L AB: UA ClnCatch+Micro w/rflx Cult (Collection Date & Time - 05/30/2025 07:45 AM) * Procedure Codes: 3 6415 VENIPUNCT, ROUTINE* * * The named appointment provid er may or may not be the originator of this progress note, and it is not deemed complete until electronically signed by the appointment provider. Sign off status: Pending * Provider: Miky Rosenberg MD Date: 07/31/2024 Generated for Guillermo valle/Zulma/eTedinsmitting on: 07/31/2024 01:07 PM EST
[2025-05-30 10:45] LABS: MANUAL DIFF FLAG NO
[2025-05-30 11:38] LABS: Appearance Urine Clear; Glucose Urine UA Negative (Negative); PH 5.0 (5.0-9.0); Specific Gravity - Urine 1.025 (1.005-1.025)
[2025-05-30 11:49] LABS: Hematocrit 42.1 % (42.0-52.0); Hemoglobin 13.6 g/dl (14.0-18.0); Imm Gran Abs Auto 0.04 X10*3/uL (0.00-0.03); Imm Gran Pct Auto 0.4 % (0.0-0.4); Lymphocytes Absolute Auto 2.6 X10*3/uL (1.2-4.9); Mean Corpuscular HGB Conc 32.3 g/dl (31.0-36.0); Mean Corpuscular Hemoglobin 29.8 pg (27.0-33.0); Mean Corpuscular Volume 92.1 fL (80.0-98.0); NRBC Abs Auto 0.000 X10*3/uL (0.0-0.012); NRBC Pct Auto 0.0 /100WBC (0.0-0.2); Platelet Count 261 X10*3/uL (160-400); Red Blood Count 4.57 X10*6/uL (4.60-5.80); White Blood Count 9.9 X10*3/uL (4.8-10.8)
[2025-05-30 11:53] LABS: Alanine Aminotransferase 19 U/L (0-40); Albumin Level 4.4 g/dL (3.5-5.0); Alkaline Phosphatase 76 U/L (39-117); Anion Gap 12 (12-20); Aspartate Amino Transferase 30 U/L (5-37); Blood Urea Nitrogen 17 mg/dL (9-16); Calcium 9.3 mg/dL (8.4-10.2); Carbon Dioxide 33 mmol/L (22-29); Chloride 104 mmol/L (96-108); Cholesterol 135 mg/dL (<200); Estimated Glomerular Filt Rate > 60; HDL Cholesterol 52 mg/dL (>40); Potassium 4.1 mmol/L (3.3-5.1); Sodium 145 mmol/L (135-145); Total Protein 7.3 g/dL (6.5-8.0); Triglycerides 113 mg/dL (<150)
[2025-05-30 12:07] LABS: PSA,Total (Free>4and<10) 4.80 ng/mL (0.00-4.00)
--- OUTSIDE RECORDS SUMMARY | 2025-05-30 13:07 | XMS_ITS | Clinical Summary ---
Author Organization 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 Active lisinopril-hydr oCHLOROthiazide (PRINZIDE,ZESTO RETIC) 20-12.5 mg per tablet Take 1 tablet by mouth daily. Active atorvastatin (LIPITOR) 40 MG tablet Take 40 mg by mouth daily. Active tamsulosin (FLOMAX) 0.4 mg Cap Take 0.4 mg by mouth nightly at bedtime. 12/27/2021 Active naproxen (NAPROSYN) 500 MG tablet Take 1 tablet (500 mg total) by mouth 2 (two) times a day as needed (moderate pain). 14 tablet 12/08/2022 Active zolpidem (AMBIEN) 5 MG tablet 1 tablet at bedtime as needed Orally Once a day for 30 days 12/05/2023 Active Active Problems No known active problems Immunizations Immunization Administration Dates Next Due COVID-19 (Pre-03/31) Pfizer Vaccine, mRNA, PF 03/01/2022 INFLUENZA, SPLIT VIRUS, TRIVALENT PF 03/09/2020, 02/16/2019,02/19/2018 Influenza Quadrivalent Preservative Free IM 02/08,02/23/2021 Pneumococcal conjugate PCV13 02/25/2019 Pneumococcal polysaccharide PPSV23 11/17/2017 Tdap 02/23/2021 Social History Tobacco Use Types Packs/Day Years Used Date Smoking Tobacco: Former Smokeless Tobacco: Never Tobacco Cessation:Counseling Given: Not Answered Alcohol Use Standard Drinks/Week Comments Yes 0 (1 standard drink = 0.6 oz pur e alcohol) Education Answer Date Recorded Are you interested in more education? Not on meri e 10/04/2022 Are you concerned about learning? Not on file 10/04/2022 No 10/04/2022 No 10/04/2022 Digital Access Answer Date Recorded No 11/02/2022 No 11/02/2022 Reliable internet access at home? Not on file 11/02/2022 Device with a working camera? Not on file Sex and Gender Information Value Date Recorded Sex Assigned at Not on file Legal Sex Male 9:54 PM EDT Gender Identity Not on file Sexual Orientation Not on file Last Filed Vital Signs Vital Sign Reading Time Taken Comments Blood Pressure 159/92 04/22/2024 8:27 AM EST Pulse 91 04/22/2024 8:27 AM EST Temperature 36.8 C (98.2 F) 04/22/2024 8:27 AM EST Respiratory Rate 18 04/22/2024 8:27 AM EST Oxygen Saturation 98% 04/22/2024 8:27 AM EST Inhaled Oxygen Concentration - - Weight 95.3 kg (210 lb) 01/03/2022 1:53 PM EDT Height 165.1 cm (5' 5 ) 01/03/2022 1:53 PM EDT Body Mass Index 34.95 01/03/2022 1:53 PM EDT Plan of Treatment Health Maintenance Due Date Last Done Comments CREATININE LEVEL 1955 LIPID PANEL 1956 POTASSIUM LEVEL 1955 DEPRESSION SCREENING 1968 SMOKING Hx and SMOKELESS TOBACCO SCREENING 1969 HEPATITIS C SCREENING 1974 COLOGUARD 2001 COLONOSCOPY 2001 COLORECTAL CANCER SCREENING 2001 FIT TEST 2001 FOBT 2001 SIGMOIDOSCOPY 2001 VIRTUAL COLONOSCOPY 2001 ZOSTER VACCINES (1 of 2) 2006 ABDOMINAL AORTIC ANEURYSM (AAA) SCREENING 2021 PNEUMOCOCCAL VACCINES (50+ years) (3 of 3 - PCV20 or PCV21) 02/26/2024 02/25/2019, 11/17/2017 INFLUENZA VACCINE (#1) 2025 , 02/23/2021, 03/09/2020, Additional history exists COVID-19 VACCINE ( season) 2025 03/01/2022, 03/01/2022, 04/19/2021, Additional history exists Adult Td,Tdap Booster 02/23/2031 02/23/2021 RSV VACCINE (1 - 1-dose 75+ series) 2031 HEPATITIS A VACCINES Aged Out No long er eligible based on patient's age to complete this topic HIB VACCINES Aged Out No longer eligi ble based on patient's age to complete this topic MENINGOCOCCAL VACCINES (ACWY) Aged Out No longer eligible based on patient's age to complete this topic MENINGOCOCCAL VACCINES (B) Aged Out N o longer eligible based on patient's age to complete this topic Medical Devices Not on file Insurance MEDICARE PART A & B [employer] SUPPLEMENT MEDICARE PART A & B [employer] SUPPLEMENT MEDICARE PART A & B [employer] SUPPLEMENT MEDICARE PART A & B [facility] MEDEX SUPPLEMENT MEDICARE PART A & B [employer] MEDEX SUPPLEMENT MEDICARE PART A & B [employer] MEDEX SUPPLEMENT MEDICARE PART A & B [employer] MEDEX SUPPLEMENT MEDICARE PART A & B [employer] MEDEX SUPPLEMENT MEDICARE PART A & B [employer] MEDEX SUPPLEMENT Care Teams Escalator Operator Relationship Specialty Start Date End Date Deshaun Rosenberg MD [address] [place] [address] [place] [address] PCP - General 03/24/17 Additional Source Comments The information contained in this document represents components of the legal health record. It is not the complete legal health record.[facility]
--- OUTSIDE RECORDS SUMMARY | 2025-05-30 13:07 | XMS_ITS | Patient Health Record ---
Author Organization Deshaun Rosenberg MD Address [address] [place], [place] [id number] Care Team Providers Care Quality Systems Manager Name Role Phone Deshaun Rosenberg Primary Care Provider Allergies No Known Allergies Results Component Value Reference Range Notes Complete Blood Count Auto Di ff Reviewed date:06/04/2024 12:38:50 PM Interpretation: Performing Lab:[facility], [address] [place] [phone] Notes/Report: White Blood Count 8.2 4.8-10.8 X10*3/uL Red Blood Count 4.25 4.60-5.80 X10*6/uL Hemoglobin 13.3 14.0-18.0 g/dl Hematocrit 40.5 42.0-52.0 % Mean Corpuscular Volume 95.3 80.0-98.0 fL Mean Corpuscular Hemoglobin 31.3 27.0-33.0 pg Mean Corpuscular HGB Conc 32.8 31.0-36.0 g/dl Red Cell Distribution Width 12.5 11.0-16.0 % Platelet Count 302 160-400 X10*3/uL Mean Platelet Volume 10.9 9.4-12.4 fL Neutrophils Percent Auto 62.7 45-73 % Imm Gran Pct Auto 0.4 0.0-0.4 % Lymphocytes Percent Auto 23.8 20-40 % Monocytes Percent Auto 10.4 2-11 % Eosinophils Percent Auto 2.3 0-4 % Basophils Percent Auto 0.4 0-2 % NRBC Pct Auto 0.0 0.0-0.2 /100WBC Neutrophils Absolute Auto 5.1 2.0-8.3 x10*3/u L Imm Gran Abs Auto 0.03 0.00-0.03 X10*3/uL Lymphocytes Absolute Auto 2.0 1.2-4.9 X10*3/u L Monocytes Absolute Auto 0.9 0.1-1.2 X10*3/uL Eosinophils Absolute Auto 0.2 0.0-0.4 X10*3/u L Basophils Absolute Auto 0.0 0.0-0.2 X10*3/uL NRBC Abs Auto 0.000 0.0-0.012 X10*3/uL Comprehensive [place]. Panel Fa st Reviewed date:06/04/2024 04:51:39 PM Interpretation: Performing Lab:[facility], [address] [place] [phone] Notes/Report: Sodium 140 135-145 mmol/L Potassium 4.4 3.3-5.1 mmol/L Chloride 102 96-108 mmol/L Carbon Dioxide 31 22-29 mmol/L Anion Gap 11 12-20 Blood Urea Nitrogen 20 9-16 mg/dL Creatinine 0.90 0.5-1.4 mg/dL Estimated Glomerular Filt Rate > 60 Chronic Kidney Disease: Estimated GFR < 60 mL/min/1.73m2 Severe Kidney Disease: Estimated GFR < 15 mL/min/1.73m2 Glucose Fasting 111 60-99 mg/dL A fasting glucose from 100-125 mg/dl is considered impaired (pre-diabetes). Calcium 8.9 8.4-10.2 mg/dL Bilirubin Total 0.2 0.0-1.0 mg/dL Aspartate Amino Transferase 24 5-37 U/L Alanine Aminotransferase 17 0-40 U/L Total Protein 6.8 6.5-8.0 g/dL Albumin Level 3.7 3.5-5.0 g/dL Alkaline Phosphatase 80 39-117 U/L Lipid Panel Reviewed date:06/04/2024 12:29:25 PM Interpretation: Performing Lab:[facility], [address] [place] [phone] Notes/Report: Triglycerides 243 <150 mg/dL Slight Lipemia. Desirable Triglyceride: less than 150 mg/dL Borderline High Triglyceride 150-199 mg/dL High Triglyceride: 200-499 mg/dL Very High Triglyceride: greater than or equal to 5OO mg/dL Cholesterol 141 <200 mg/dL Desirable Cholesterol: less than 200 mg/dL Borderline High Cholesterol: 200-239 mg/dL High Cholesterol: greater than 239 mg/dL LDL Cholesterol Calculated 49 <100 mg/dL Desirable LDL: less than 100 mg/dL Near Optimal/Above Optimal LDL: 110-129 mg/dL Borderline High LDL: 130-159 mg/dL High LDL: 160-189 mg/dL Very High LDL: greater than or equal to 190 mg/dL HDL Cholesterol 44 >40 mg/dL Desirable HDL: greater than 40 mg/dL Note: This HDL assay may give artificially low results in patients with liver disease. PSA,Total (Free>4and<10) Reviewed date:06/04/2024 12:29:00 PM Interpretation: Performing Lab:[address] [phone] Notes/Report: PSA,Total (Free>4and<10) 3.29 0.00-4.00 ng/mL A Free PSA was not performed: The percentage of Free PSA can be used to enhance the differentiation of prostate cancer from benign prostatic disease in subjects whose PSA levels are between 4.0 and 10.0 ng/mL. For subjects whose PSA levels are below 4.0 or above 10.0 ng/mL, the risk of prostate cancer is determined on the basis of the PSA alone. Therefore the % Free PSA is recommended only for those subjects whose PSA levels are between 4.0 and 10.0 ng/mL. PSA methodology: Edmonds Alinity i Chemiluminescent Microparticle Immunoassay (CMIA) UA ClnCatch+Micro w/rflx Cul t Reviewed date:06/04/2024 12:38:33 PM Interpretation: Performing Lab:[address] [phone] Notes/Report: [id number] Urine, Clean Catch Color Urine Yellow Appearance Urine Clear PH 5.5 5.0-9.0 Glucose Urine UA Negative Negative mg/dL Urine Blood Negative Negative Specific [place] - Urine >= 1.030 1.005-1.025 Urine Protein Negative Neg-Trace mg/dL Urine Ketones Trace Negative mg/dL Nitrite Urine Negative Negative Leukocyte Esterase Urine Negative Negative RBC Urine 0-2 0-2 /HPF WBC Urine 0-5 0-5 /HPF Squamous Epithelial Cell Urine 0-2 0-2 /HPF Bacteria Urine None Seen None Seen Hyaline Casts Urine 0-2 0-2 /LPF Liver Panel Reviewed date:12/07/2024 10:25:21 AM Interpretation: Performing Lab:[facility], [address] [place] [phone] Notes/Report: Bilirubin Total 0.4 0.0-1.0 mg/dL Bilirubin Direct 0.2 0.0-0.5 mg/dL Aspartate Amino Transferase 28 5-37 U/L Alanine Aminotransferase 22 0-40 U/L Total Protein 7.4 6.5-8.0 g/dL Albumin Level 4.1 3.5-5.0 g/dL Alkaline Phosphatase 86 39-117 U/L Glucose Fasting Reviewed date:12/07/2024 10:25:05 AM Interpretation: Performing Lab:[facility], [address] [place] [phone] Notes/Report: Glucose Fasting 189 60-99 mg/dL A fasting glucose of 126 mg/dl or greater on more than one occasion is considered diagnostic of diabetes. Lipid Panel with Reflex Reviewed date:12/07/2024 10:27:08 AM Interpretation: Performing Lab:[facility], [address] [place] [phone] Notes/Report: Triglycerides 150 <150 mg/dL Desirable Triglyceride: [...] A1c Reviewed date:12/06/2024 01:00:58 PM Interpretation: Performing Lab:[address], [place] [address] Notes/Report: Hemoglobin A1c % 6.0 <6.0 % [...] average glucose, using the formula of the E2R-Swxfdvk Average Glucose study (ADAG), Diabetes Care, Vol.31,#8, Jan. 2007 Tick-borne Disease Molecular Reviewed date:12/18/2024 09:01:49 AM Interpretation: Performing Lab:[address] [phone] Notes/Report: Babesia Microti DNA, RT-PCR NOT DETECTED NOT DETECTED This test was developed and its analytical performance characteristics have been determined by [employer]. It has not been cleared or approved by the FDA. This assay has been validated pursuant to the CLIA regulations and is used for clinical purposes. THIS TEST WAS PERFORMED AT: Written [address] [place] [phone] QUIAT DEL CASTILLO MD E.Chaffeensis DNA RT-PCR NOT DETECTED NOT DETECTED This test was developed and its analytical performance characteristics have been determined by [facility]. It has not been cleared or approved by the FDA. This assay has been validated pursuant to the CLIA regulations and is used for clinical purposes. THIS TEST WAS PERFORMED AT: Written [address] [place] [phone] QUITA DEL CASTILLO MD A. Phagocytphilium DNA,RT-PCR NOT DETECTED NOT DETECTED This test was developed and its analytical performance characteristics have been determined by [facility]. It has not been cleared or approved by the FDA. This assay has been validated pursuant to the CLIA regulations and is used for clinical purposes. Lyme(Borrelia ssp)DNA RT-PCR NOT DETECTED NOT DETECTED This test was developed and its analytical performance characteristics have been determined by [facility]. It has not been cleared or approved by the FDA. This assay has been validated pursuant to the CLIA regulations and is used for clinical purposes. For additional information, please refer to https://education.Yodlee/faq/fjf107 (This link is being provided for informational/ educational purposes only.) THIS TEST WAS PERFORMED AT: Written [address] [place] [phone] QUITA DEL CASTILLO MD Borrelia Miyamotoi,DNA RT-PCR NOT DETECTED NOT DETECTED This test was developed and its analytical performance characteristics have been determined by [facility]. It has not been cleared or approved by the FDA. This assay has been validated pursuant to the CLIA regulations and is used for clinical purposes. THIS TEST WAS PERFORMED AT: Written [address] [place] [phone] QUITA DEL CASTILLO MD Tick Mol. Panel [...] be indicated. THIS TEST WAS PERFORMED AT: Written [address] [place] [phone] QUITA DEL CASTILLO MD Liver Panel Reviewed date:03/22/2025 12:30:19 PM Interpretation: Performing Lab:[facility], [address] [place] [phone] Notes/Report: Bilirubin Total 0.6 0.0-1.0 mg/dL Bilirubin Direct 0.2 0.0-0.5 mg/dL Aspartate Amino Transferase 26 5-37 U/L Alanine Aminotransferase 21 0-40 U/L Total Protein 7.4 6.5-8.0 g/dL Albumin Level 4.2 3.5-5.0 g/dL Alkaline Phosphatase 79 39-117 U/L Glucose Fasting Reviewed date:03/22/2025 12:30:08 PM Interpretation: Performing Lab:[facility], [address] [place] [phone] Notes/Report: Glucose Fasting 147 60-99 mg/dL A fasting glucose of 126 mg/dl or greater on more than one occasion is considered diagnostic of diabetes. Lipid Panel with Reflex Reviewed date:03/22/2025 12:37:50 PM Interpretation: Performing Lab:[facility], [address] [place] [phone] Notes/Report: Triglycerides 151 <150 mg/dL Desirable Triglyceride: [...] A1c Reviewed date:03/22/2025 12:29:52 PM Interpretation: Performing Lab:[facility], [address] [place] [phone] Notes/Report: Hemoglobin A1c % 6.0 <6.0 % [...] average glucose, using the formula of the M4W-Fpcezyp Average Glucose study (ADAG), Diabetes Care, Vol.31,#8, Jan. 2007 PSA,Total (Free>4and<10) (No t yet reviewed by provider) Interpretation: Performing Lab:[facility], [address] [place] [phone] Notes/Report: PSA,Total (Free>4and<10) 4.80 0.00-4.00 ng/mL PSA methodology: Edmonds Alinity i Chemiluminescent Microparticle Immunoassay (CMIA) Complete Blood Count Auto Di ff Reviewed date:05/30/2025 12:03:13 PM Interpretation: Performing Lab:[facility], [address] [place] [phone] Notes/Report: White Blood Count 9.9 4.8-10.8 X10*3/uL [...] Panel Reviewed date:05/30/2025 11:57:49 AM Interpretation: Performing Lab:[facility], [address] [place] [phone] Notes/Report: Triglycerides 113 <150 mg/dL Desirable Triglyceride: [...] t Reviewed date:05/30/2025 12:04:55 PM Interpretation: Performing Lab:[address] [phone] Notes/Report: Urine, Clean Catch Color Urine Yellow Appearance Urine Clear PH 5.0 5.0-9.0 Glucose Urine UA Negative Negative mg/dL Urine Blood Negative Negative Specific [place] - Urine 1.025 1.005-1.025 Urine Protein Trace Neg-Trace mg/dL Urine Ketones Negative Negative mg/dL Nitrite Urine Negative Negative Leukocyte Esterase Urine Negative Negative RBC Urine 0-2 0-2 /HPF WBC Urine 0-5 0-5 /HPF Squamous Epithelial Cell Urine 3-5 0-2 /HPF Bacteria Urine None Seen None Seen Hyaline Casts Urine 11-20 0-2 /LPF Granular Casts Urine Present Lory Kulkarni Reviewed date:12/06/2024 01:00:40 PM Interpretation: Performing Lab:[facility], [address] [place] [phone] Notes/Report: Lory Kulkarni See Note Specimen held untested for 24 hours; Call to request Chemistry testing. Glucose, Whole Blood Reviewed date:01/10/2025 04:37:50 PM Interpretation: Performing Lab:[facility], [address] [place] [phone] Notes/Report: Glucose, Whole Blood 122 60-115 mg/dL METER # : [id number] Lory Kulkarni Reviewed date:03/22/2025 10:57:55 AM Interpretation: Performing Lab:[facility], [address] [place] [phone] Notes/Report: Hold Gold See Note Specimen held untested for 24 hours; Call to request Chemistry testing. Comprehensive Met. Panel Reviewed date:05/30/2025 12:03:53 PM Interpretation: Performing Lab:[facility], [address] [place] [address] Notes/Report: Sodium 145 135-145 mmol/L Potassium 4.1 3.3-5.1 mmol/L Chloride 104 96-108 mmol/L Carbon Dioxide 33 22-29 mmol/L Anion Gap 12 12-20 Blood Urea Nitrogen 17 9-16 mg/dL Creatinine 1.04 0.5-1.4 mg/dL Estimated Glomerular Filt Rate > 60 Chronic Kidney Disease: Estimated GFR < 60 mL/min/1.73m2 Severe Kidney Disease: Estimated GFR < 15 mL/min/1.73m2 Glucose Random 116 60-115 mg/dL Calcium 9.3 8.4-10.2 mg/dL Bilirubin Total 0.3 0.0-1.0 mg/dL Aspartate Amino Transferase 30 5-37 U/L Alanine Aminotransferase 19 0-40 U/L Total Protein 7.3 6.5-8.0 g/dL Albumin Level 4.4 3.5-5.0 g/dL Alkaline Phosphatase 76 39-117 U/L Reason For Referral Reason history of colon asher yps Diagnosis 1 History of colon asher yps (Z86.0100) Referral Organization Deshaun Rosenberg MD Referring Provider First Name Deshaun Referring Provider Last Name Chet Referring Provider Speciality Internal edicine Referred Provider Hudson Frost Referred Provider Specialty Gastroentero logy General Notes Hui Hawthorne 0 06/18/2024 11:50:51 AM > info faxedMarine Annette 06/22/2024 02:41:10 PM > patient is aware of appt Referral Priority Routine Referral Appointment Date 10/26/2024 Reason lesion of skin nose Diagnosis 1 Lesion of skin of no se (L98.9) Referral Organization Deshaun Rosenberg MD Referring Provider First Name Deshaun Referring Provider Last Name Chet Referring Provider Speciality Internal edicine Referred Provider [place] [facility] Nikko kang Referred Provider Specialty Dermatology General Notes Hui Hawthorne 0 06/10/2024 02:14:59 PM > Referral faxed with note and letter for an appt, Hui Hawthorne 06/22/2024 01:32:26 PM > [address] [place]ce With Shreya Barraza left this message with patient, Hui Hawthorne 06/22/2024 02:41:51 PM > patient is aware of appt, Margy Cain 06/24/2024 03:19:36 PM >OFFICE NOTE RECD Referral Priority Routine Referral Appointment Date 06/24/2024 Medications Medication SIG (Take, Route, Frequency, Duration) Notes Start Date End Date Status Celecoxib 200 MG TAKE 1 CAPSULE BY MOUTH ONCE DAILY WITH FOOD FOR 30 DAYS for 30 Not-Taking dexAMETHasone 4 MG 1 tablet Orally Thre e times a day for 7 days 12/24/2022 Not-Takin g Lotrisone 1-0.05 % 1 application to affected area Externally Twice a day for 90 days 12/27/2012 Active Doxycycline Hyclate 100 MG 1 capsule Ora lly twice a day for 14 days 12/06/2024 Not-Taking Viagra 50 MG 1 tablet as needed Orally Once a day for 30 days 12/22/2012 Not-Taking Ciclopirox 0.77% as directed applied topically twice a day for 30 days 04/12/2022 Active Cyclobenzaprine HCl 5 MG 1 tab Orally 3 times a day for 14 days 12/31/2022 Not-Taking Lisinopril-hydroCHLOROthia zide 20-12.5 MG Take 1 tablet by mouth once daily for 90 Active Gabapentin 600 MG 1 capsule Orally Onc e a day for 90 days 06/05/2023 Active Ambien 5 MG 1 tablet at bedtime as needed Orally Once a day for 30 days 12/02/2024 Active Ibuprofen 800 MG 1 tablet with food o r milk as needed Orally Three times a day for 90 days 10/24/2017 Active LORazepam 0.5 MG 1 tablet as needed Orally Once a day for 5 days 04/14/2018 Not-Taking Rosuvastatin Calcium 40 MG 1 tablet Oral ly Once a day for 30 days 12/13/2024 Active Tamsulosin HCl 0.4 MG 1 capsule Orally O nce a day for 90 days Active Ibuprofen 800 MG 1 tablet Orally Thre e times a day for 30 day(s) 09/12/2014 Not-Taking metFORMIN HCl 500 MG TAKE 1 TABLET BY [facility] TWICE DAILY WITH FOOD FOR 90 DAYS for 90 Active Immunizations Vaccine Route Administration Date Status [...] 04/19/2021 Administered SARS-COV-2 Pfizer Unknown 03/01/2022 Administered Fluarix Quadrivalent - 150 IM Intramuscular 06/10/2024 Adm inistered Flu Vaccine Unknown 07/11/2015 Refused Social History Tobacco Use: Social History Observation [...] Never (0 point) Points 3 Interpretation Negative Problems Problem Type SNOMED Code ICD Code Onset Dates Problem Status W/U Status Risk Notes Problem 3692718 Primary insomnia (F51.01) Active confirmed Problem [id number] Erectile dysfunc tion due to arterial insufficiency (N52.01) Active confirmed Problem 07193669 Smoker (F17.200) Active confirmed Problem 69859348 Essential hypert ension (I10) Active confirmed Problem Type II diabetes mellitus without complication (054920659) Type 2 diabetes mellitus without complication (E11.9) Active confirmed Problem Inflammation of bursa of olecranon (488127091) Olecranon bursitis of left elbow (M70.22) Active confirmed Problem 3381234 Diabetes mellitu s due to underlying condition with diabetic neuropathy (E08.40) Active confirmed Problem 54041320 Type 2 diabetes, controlled, with neuropathy (E11.40) Active confirmed Problem 65648761 Stress (F43.9) Active confirmed Problem 75299122 Dysthymia (F34.1) Active confirmed Problem Sciatica (64321687) Right sided sciatica (M54.31) Active confirmed Problem 728243424 Pure hypercholesterolemia (E78.00) Active confirmed Problem 518016659 Arthritis of kne e (M17.10) Active confirmed Problem 51970520 Unspecified slee p apnea (G47.30) Active confirmed Problem 517179496 Hand arthritis (M19.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) Active confirmed Problem Intervertebral disc disorder (01281778) Disc disorder (M51.9) Active confirmed Vital Signs Blood pressure diastolic 70 mm Hg 12/13/2024 patricia ght is up 3 pounds since 12-06-24 Height 64 in 12/13/2024 weight is up 3 pounds since 12-06-24 Blood pressure systolic 148 mm Hg 12/13/2024 weig ht is up 3 pounds since 12-06-24 Weight 199 lbs 12/13/2024 weight is up 3 pounds since 12-06-24 BMI 34.15 kg/m2 12/13/2024 weight is up 3 pounds since 12-06-24 Encounters Encounter Location Date Provider Diagnosis Deshaun Rosenberg MD [address] [place] [id number] 06/04/2024 Deshaun Rosenberg Diabetes mellitus du e to underlying condition with diabetic neuropathy E08.40 ; Essential hypertension I10 and Pure hypercholesterolemia E78.00 Deshaun Rosenberg MD [address] [place] [address] Drive [address] [place] [id number] 12/06/2024 Deshaun Rosenberg Diabetes mellitus du e to underlying condition with diabetic neuropathy E08.40 and Pure hypercholesterolemia E78.00 Deshaun Rosenberg MD [address] [place] [address] Drive [address] [place] [id number] 12/16/2024 Deshaun Rosenberg Tick bite W57.XXXA a nd Skin rash R21 Deshaun Rosenberg MD [address] [place] [id number] 03/22/2025 Deshaun Rosenberg Diabetes mellitus du e to underlying condition with diabetic neuropathy E08.40 and Pure hypercholesterolemia E78.00 Deshaun Rosenberg MD [address] [place] [id number] 05/30/2025 Deshaun Rosenberg Diabetes mellitus du e to underlying condition with diabetic neuropathy E08.40 ; Essential hypertension I10 and Pure hypercholesterolemia E78.00 Deshaun Rosenberg MD [address] [place] [id number] 06/10/2024 Deshaun Rosenberg Rash R21 ; Type 2 di abetes mellitus without complication E11.9 ; History of colon polyps Z86.0100 ; Lesion of skin of nose L98.9 ; Pure hypercholesterolemia E78.00 ; Essential hypertension I10 and Encounter for immunization Z23 Deshaun Rosenberg MD [address] [place] [id number] 12/06/2024 Deshaun Rosenberg Tick bite W57.XXXA a nd Skin rash R21 Deshaun Rosenberg MD [address] [place] [id number] 12/13/2024 Deshaun Rosenberg Diabetes mellitus du e to underlying condition with diabetic neuropathy E08.40 ; Tick bite W57.XXXA and Pure hypercholesterolemia E78.00 Deshaun Rosenberg MD [address] [place] [id number] 12/02/2024 Deshaun Rosenberg Type 2 diabetes shawn itus without complication E11.9 ; Pure hypercholesterolemia E78.00 ; Primary insomnia F51.01 and Rash R21 Deshaun Rosenberg MD [address] [place] [id number] 05/03/2025 Deshaun Rosenberg Essential hypertensi on I10 ; Primary insomnia F51.01 and 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 Deshaun Rosenberg MD [address] [place] [id number] 05/03/2025 Deshaun Rosenberg MD [address] [place] [id number] 05/03/2025 Deshaun Rosenberg Assessments Encounter Date Diagnosis (ICD Code) Assessment Notes Treatment Notes Treatment Clinical Notes Section Notes 06/04/2024 Diabetes mellitus du e to underlying condition with diabetic neuropathy (ICD-10 - E08.40) 06/04/2024 Essential hypertensi on (ICD-10 - I10) 12/06/2024 Diabetes mellitus du e to underlying condition with diabetic neuropathy (ICD-10 - E08.40) 12/16/2024 Tick bite (ICD-10 - W57.XXXA) 12/16/2024 Skin rash (ICD-10 - R21) 03/22/2025 Diabetes mellitus du e to underlying condition with diabetic neuropathy (ICD-10 - E08.40) 05/30/2025 Diabetes mellitus du e to underlying condition with diabetic neuropathy (ICD-10 - E08.40) 06/10/2024 Rash (ICD-10 - R21) 06/10/2024 Type 2 diabetes mellitus without complication (ICD-10 - E11.9) doing well on meds, will continue current regiment 12/06/2024 Tick bite (ICD-10 - W57.XXXA) patient verbalized understanding of medication and directions for use 12/06/2024 Skin rash (ICD-10 - R21) 12/13/2024 Diabetes mellitus du e to underlying condition with diabetic neuropathy (ICD-10 - E08.40) 12/13/2024 Tick bite (ICD-10 - W57.XXXA) need results from the blood work 12/02/2024 Type 2 diabetes mellitus without complication (ICD-10 - E11.9) 05/03/2025 Essential hypertensi on (ICD-10 - I10) 06/04/2024 Pure hypercholesterolemia (ICD-10 - E78.00) 12/06/2024 Pure hypercholesterolemia (ICD-10 - E78.00) 03/22/2025 Pure hypercholesterolemia (ICD-10 - E78.00) 05/30/2025 Essential hypertensi on (ICD-10 - I10) 06/10/2024 History of colon asher yps (ICD-10 - Z86.0100) needs referral to dr frost 12/13/2024 Pure hypercholesterolemia (ICD-10 - E78.00) patient verbalized understandingof medication and directions for use 12/02/2024 Pure hypercholesterolemia (ICD-10 - E78.00) 05/03/2025 Primary insomnia (ICD-10 - F51.01) 05/30/2025 Pure hypercholesterolemia (ICD-10 - E78.00) 06/10/2024 Lesion of skin of no se (ICD-10 - L98.9) referral to dermatology 12/02/2024 Primary insomnia (ICD-10 - F51.01) 05/03/2025 Hand arthritis (ICD- 10 - M19.049) 06/10/2024 Pure hypercholesterolemia (ICD-10 - E78.00) syable, will continue current regiment 12/02/2024 Rash (ICD-10 - R21) 06/10/2024 Essential hypertensi on (ICD-10 - I10) 06/10/2024 Encounter for immunization (ICD-10 - Z23) 12/13/2024 Other advised to get shingles and covid Plan Of Treatment Pending Test Test Name Order Date Electrocardiogram (EKG) 02/25/2019 Electrocardiogram (EKG) 02/19/2018 Hemoglobin A1c 12/13/2024 Glucose, finger stick 12/13/2024 MRI LUMBAR SPINE NO CONTRAST 12/24/2022 Comprehensive [place]. Panel Fast PSA,Total (Free>4and<10) 05/30/2025 Tick-borne Disease Molecular 12/06/2024 MR thoracic spine wo con 01/06/2023 MR thoracic spine wo con 01/21/2023 Next Appt Details Provider Name:Deshaun delacruz, 06/16/2025 10:00:00 AM, [address] [place] [address], [address], [place], [place], [id number], Insurance Providers Payer Name Payer Address Payer Phone Subscriber Number Group Number Insured Name Patient Relationship to Insured Coverage Start Date Coverage End Date MEDICARE [employer] [place] [address] [id number] Terri Chapin Self - patient is the insured MEDEX BCBS OF [facility] [address] [place] [address] [id number] Terri Chapin Self - patient is the insured Medical (General) History Medical History History ICD Code colonoscopy 04/05/2009 due 1 0 year w/Dr. Frost: 05/17/22 Colonoscopy 1 yr follow up. 01/10/25 Colonoscopy repeat 5y refuses flu vac - 06/26/2012 Rotator cuff tear
--- OUTSIDE RECORDS SUMMARY | 2025-05-30 13:08 | XMS_ITS | Patient Health Record ---
Author Organization [facility] Address [address] [place] [id number] Care Team Providers Care Hall Monitor Name Role Phone Deshaun Rosenberg MD Primary Care Provider Hudson Gomez [phone] Allergies No Known Allergies Results Component Value Reference Range Flag Notes Glucose, Whole Blood Reviewed date:01/11/2025 09:47:20 AM Interpretation: Performing Lab:[facility], [address] [place] [id number] Notes/Report: Glucose, Whole Blood 122 60-115 mg/dL H NV TER #: [id number] Reason For Referral No Information Medications Medication SIG (Take, Route, Frequency, Duration) Notes Start Date End Date Status Tamsulosin HCl 0.4 MG Capsule TAKE 1 CAPSULE BY MOUTH EVERY NIGHT AT BEDTIME Oral; Duration: 90 Active Atorvastatin Calcium 20 MG Tablet 1 tablet Orally Once a day; Duration: 30 day(s) Active metFORMIN HCl 500 MG Tablet TAKE 1 TABLE T BY MOUTH TWICE DAILY WITH MEALS Orally twice a day Active Gabapentin Active Lisinopril-hydroCHLOROthiaz raymond 20-12.5 MG Tablet 1 tablet Orally Once a day 10/26/2024 Active Immunizations Vaccine Route Administration Date Status Comme nts Influenza Unknown 03/09/2019 Administered Influenza Unknown 03/06/2022 Administered Social History Tobacco Use: Social History Observation Description Date Details (start date - stop date) Former Smoker NA - NA Social History Drugs/Alcohol: Social Info Question Answer Notes Alcohol Screen Did you have a drink containing alcohol in the past year? Yes How often did you have a drink containing alcohol in the past year? 2 to 3 times a week (3 points) How many drinks did you have on a typical day when you were drinking in the past year? 1 or 2 drinks (0 point) How often did you have 6 or more drinks on one occasion in the past year? Never (0 point) Points 3 Interpretation Negative Tobacco Use: Social Info Question Answer Notes Tobacco Use/Smoking Patient is a former smoker How long has it been since you last smoked? 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 [...] the 06/16/19 OV--he finished the Suboxone in 2020 Problems Problem Type SNOMED Code ICD Code Onset Dates Problem Status W/U Status Risk Notes Problem Screening for malignant neoplasm of colon (907740980) Encounter for screening for malignant neoplasm of colon (Z12.11) Active confirmed Problem Preprocedural examination (947283104454440) Preprocedural examination (Z01.818) Active confirmed Problem Diverticulosis of sigmoid colon (074226163) Diverticulosis of sigmoid colon (K57.30) Active confirmed Vital Signs Blood pressure diastolic 77 mm Hg 10/26/2024 Height 65 in 10/26/2024 Blood pressure systolic 111 mm Hg 10/26/2024 Weight 200 lbs 10/26/2024 BMI 33.28 kg/m2 10/26/2024 Procedures Procedure Date Ordered Date Performed Result Body Sit e COLONOSCOPY 10/26/2024 N/A Encounters Encounter Location Date Provider Diagnosis [facility] Out[facility] [address], [place] [id number] 01/10/2025 Hudson Haas [facility] [address] [place] [id number] 10/26/2024 Hudson Haas Encounter for screening for malignant neoplasm of colon Z12.11 ; High risk medications (not anticoagulants) long-term use Z79.899 ; Serrated polyp of colon K63.5 ; History of adenomatous polyp of colon Z86.0101 and Preprocedural examination Z01.818 [facility] [address] [place] [phone] 01/10/2025 Hudson Haas Assessments Encounter Date Diagnosis (ICD Code) Assessment [...] Name Order Date COLONOSCOPY 06/16/2019 COLONOSCOPY 03/13/2022 Insurance Providers Payer Name Payer Address Payer Phone Subscriber Number Group Number Insured Name Patient Relationship to Insured Coverage Start Date Coverage End Date MEDICARE OF [place] [address] [place] [id number] RAHEL SANABRIA Self - patient is the insured 1 [employer] CLAIMS [address] [place] [address] [id number] RAHEL SANABRIA Self - patient is the insured Medical (General) History Medical History History ICD Code Denies [place],CVA,Lung disease,renal disease NIDDM Hypertension Hyperlipidemia Screening colonoscopy [...] from the colon Surgical History Surgery Date(Month/Year) Rotator cuff tear repair- left shoulder Left inguinal hernia repair Left torn meniscus knee 2023
[2025-06-01 12:58] LABS: Free Prostate Spec Ag 0.7 ng/mL; Percent Free Prostate Spec Ag 16 % (calc) (>25)
== END 2025-05-30 10:37 | disposition home or self-care (01) ==
LOC: HO.LNP 10:36
PROVIDERS: Visit Provider Internal Medicine
DX: Z12.5 Encounter for screening for malignant neoplasm of prostate (principal); I10 Essential (primary) hypertension; E78.00 Pure hypercholesterolemia, unspecified; E11.8 Type 2 diabetes mellitus with unspecified complications
CPT/HCPCS: 80053; 80061; 81001; 84153; 84154; 85025